=== PATIENT | male | born 1955 | race Caucasian/White ===

== ENCOUNTER → 2017-01-14 | Outpatient (REF) | payer BC, OTHER ==
[2017-01-14 11:21] LABS: ALBUMIN 4.1 GM/DL (3.2-5.2); ALBUMIN/GLOBULIN RATIO 1.11 (1.00-1.93); ALKALINE PHOSPHATASE 83 U/L (45-117); ALT/SGPT 26 U/L (12-78); ANION GAP 8 MEQ/L (8-16); AST/SGOT 12 U/L (15-37); BILIRUBIN,TOTAL 0.6 MG/DL (0.2-1.0); BLOOD UREA NITROGEN 21 MG/DL (7-18); CALCIUM LEVEL 8.9 MG/DL (8.8-10.2); CARBON DIOXIDE LEVEL 28 MEQ/L (21-32); CHLORIDE LEVEL 104 MEQ/L (98-107); CHOLESTEROL LEVEL 145 MG/DL (<200); CREATININE FOR GFR 0.96 MG/DL (0.70-1.30); GLOMERULAR FILTRATION RATE > 60.0 (>49); GLUCOSE, FASTING 108 MG/DL (80-110); POTASSIUM SERUM 4.8 MEQ/L (3.5-5.1); SODIUM LEVEL 140 MEQ/L (136-145); TOTAL PROTEIN 7.8 GM/DL (6.4-8.2); TRIGLYCERIDES LEVEL 225 MG/DL (<150)
== END ==
LOC: M LABDRAW1 08:46
PROVIDERS: ATTEND Emergency Medicine
DX: E78.2 Mixed hyperlipidemia (principal); R73.01 Impaired fasting glucose; I10 Essential (primary) hypertension

== ENCOUNTER → 2018-02-06 | Outpatient (REF) | payer BC ==
[2018-02-06 12:57] LABS: ALBUMIN 4.4 GM/DL (3.2-5.2); ALBUMIN/GLOBULIN RATIO 1.29 (1.00-1.93); ALKALINE PHOSPHATASE 89 U/L (45-117); ALT/SGPT 24 U/L (12-78); ANION GAP 8 MEQ/L (8-16); AST/SGOT 10 U/L (7-37); BILIRUBIN,TOTAL 0.6 MG/DL (0.2-1.0); BLOOD UREA NITROGEN 23 MG/DL (7-18); CALCIUM LEVEL 8.8 MG/DL (8.8-10.2); CARBON DIOXIDE LEVEL 28 MEQ/L (21-32); CHLORIDE LEVEL 104 MEQ/L (98-107); CHOLESTEROL LEVEL 157 MG/DL (<200); CHOLESTEROL RISK RATIO 4.906 (<5); CREATININE FOR GFR 1.03 MG/DL (0.70-1.30); GLOMERULAR FILTRATION RATE > 60.0 (>49); GLUCOSE, FASTING 108 MG/DL (70-100); HDL CHOLESTEROL 32 MG/DL (>40); LDL CHOLESTEROL 83 MG/DL (<100); NON-HDL-C 125 MG/DL; POTASSIUM SERUM 4.5 MEQ/L (3.5-5.1); SODIUM LEVEL 140 MEQ/L (136-145); TOTAL PROTEIN 7.8 GM/DL (6.4-8.2); TRIGLYCERIDES LEVEL 212 MG/DL (<150)
[2018-02-06 13:06] LABS: ESTIMATED AVERAGE GLUCOSE 111 MG/DL (60-110); HEMOGLOBIN A1c 5.5 %
[2018-02-06 15:22] LABS: HEPATITIS C VIRUS ABY INDEX < 0.0 INDEX (<0.8)
== END ==
LOC: M LABDRAW1 12:07
DX: I10 Essential (primary) hypertension (principal); E78.2 Mixed hyperlipidemia; R73.01 Impaired fasting glucose; Z00.00 Encounter for general adult medical examination without abnormal findings
CPT/HCPCS: 80053

== ENCOUNTER → 2019-03-25 | Outpatient (REF) | payer OTHER ==
[2019-03-25 12:10] LABS: BASO % 0.6 % (0.0-1.0); EOS # 0.2 10^3/uL (0.0-0.5); HEMATOCRIT 43.8 % (42.0-52.0); LYMPH # 1.7 10^3/uL (1.5-5.0); MEAN CORPUSCULAR HEMOGLOBIN 32.6 pg (27.0-33.0); MEAN CORPUSCULAR VOLUME 102.1 fl (80.0-96.0); MONO # 0.6 10^3/uL (0.0-0.8); MONO % 9.1 % (0.0-5.0); NEUTROPHILS # 4.4 10^3/uL (1.5-8.5); NEUTROPHILS % 62.9 % (36.0-66.0); PLATELET COUNT, AUTOMATED 233 10^3/uL (150-450); RED BLOOD COUNT 4.29 10^6/uL (4.30-6.10); WHITE BLOOD COUNT 6.9 10^3/uL (4.0-10.0)
[2019-03-25 12:51] LABS: ALBUMIN 4.2 GM/DL (3.2-5.2); ALT/SGPT 27 U/L (12-78); BILIRUBIN,TOTAL 0.7 MG/DL (0.2-1.0); BLOOD UREA NITROGEN 22 MG/DL (7-18); CALCIUM LEVEL 9.2 MG/DL (8.8-10.2); CARBON DIOXIDE LEVEL 29 MEQ/L (21-32); CHLORIDE LEVEL 103 MEQ/L (98-107); CHOLESTEROL LEVEL 160 MG/DL (<200); CREATININE FOR GFR 1.18 MG/DL (0.70-1.30); GLOMERULAR FILTRATION RATE > 60.0 (>49); GLUCOSE, FASTING 120 MG/DL (70-100); HDL CHOLESTEROL 32 MG/DL (>40); LDL CHOLESTEROL 82 MG/DL (<100); NON-HDL-C 128 MG/DL; POTASSIUM SERUM 4.5 MEQ/L (3.5-5.1); SODIUM LEVEL 140 MEQ/L (136-145); TOTAL PROTEIN 7.9 GM/DL (6.4-8.2); TRIGLYCERIDES LEVEL 230 MG/DL (<150)
[2019-03-27 00:16] LABS: PSA % FREE 15.3 % (.); PSA FREE 1.07 ng/mL
== END ==
LOC: M LABDRAW1 11:47
PROVIDERS: ATTEND Family Medicine
DX: Z12.5 Encounter for screening for malignant neoplasm of prostate (principal); E78.2 Mixed hyperlipidemia

== ENCOUNTER → 2019-05-11 | Outpatient (REF) | payer OTHER ==
[2019-05-11 18:37] LABS: HEMOGLOBIN A1c 5.8 %
[2019-05-14 00:07] LABS: PSA % FREE 16.7 % (.); PSA FREE 1.27 ng/mL; PSA TOTAL 7.6 ng/mL (0.0-4.0)
== END ==
LOC: M LABDRAW1 17:26
PROVIDERS: ATTEND Physician Assistant Medical
DX: R97.20 Elevated prostate specific antigen [PSA] (principal); R73.01 Impaired fasting glucose

== ENCOUNTER → 2019-05-28 | Outpatient (REF) | payer OTHER | LOC: M SMT 13:23 | PROVIDERS: ATTEND Nurse Practitioner Family | DX: R97.20 Elevated prostate specific antigen [PSA] (principal); R19.7 Diarrhea, unspecified ==

== ENCOUNTER → 2019-06-22 | Outpatient (CLI) | payer OTHER ==
--- NOTE | 2019-06-22 12:45 | REPPI ---
Prostate sonography: History: Elevated PSA. Sonographic findings: Trans rectal prostate sonography demonstrates unremarkable seminal vesicles. Prostate gland is heterogeneously enlarged with calcifications and cystic changes noted. Glandular dimensions are measured at 5.2 x 4.3 x 4.9 cm with a calculated glandular volume of 57.8 ml. Transrectal sonographic guidance is provided to Dr. Ramos who performed trans rectal ultrasound guided needle biopsy procedure . Electronically Signed by William Rollins MD 06/22/2019 12:06 P
== END ==
LOC: M SMT PRO 08:12
PROVIDERS: ATTEND Urology
DX: C61 Malignant neoplasm of prostate (principal)
CPT/HCPCS: 76872; 76942; G0416

== ENCOUNTER → 2019-08-17 | Outpatient (CLI) | payer OTHER ==
[~2019-08-17] MED LIST: CLOT1CRE71 TOP; LEXA5TAB13 PO; LOSA100T8 PO; SIMV20TA22 PO
--- NOTE | 2019-08-17 11:05 | RADONC ---
RADIATION ONCOLOGY CONSULTATION NOTE DATE: 08/17/2019 This is a telemedicine visit. The patient was informed of the risks including security breech, technological failure, inability to perform a comprehensive physical exam which could delay or prevent an accurate diagnosis, and potential complications from treatment decisions rendered over a telemedicine platform. The patient understands and consented to the use of telehealth services phone only. CHART NUMBER: [id number] DIAGNOSIS: Prostate cancer. STAGE: II A, T2b, N0, M0, Lc score 6 (3-3), grade group 1, PSA 7.6. ECOG PERFORMANCE STATUS: 0 CONSULTATION NOTE: Mr. Austin Larson is a very pleasant 64-year-old white male with the diagnosis of what appears to be a stage II A, T2b, N0, M0, Lc score 6 (3-3) adenocarcinoma of the prostate, grade group 1 with a PSA level of 7.6, who is presenting to us today for discussion of definitive external beam radiation therapy with IMRT/IGRT. HISTORY OF PRESENT ILLNESS: The patient was in his usual state of health and on March 25, 2019 was found to have a PSA level of 7.0. By May 11, 2019 the PSA had risen to 7.6. On 06/22/2019, the patient underwent prostatic needle biopsy and pathology revealed a Greer score 6 (3-3), adenocarcinoma involving the left side of his prostate. The patient's father as well as multiple friends have had prostate cancer, several which were treated with surgery and several which were treated with IMRT radiation, and he has decided on undergoing radiation. He does not wish to be observed. The patient is scheduled for placement of fiducial markers with his urologist doctor, Elio Ramos MD next week. PAST MEDICAL HISTORY: The patient's past medical history is positive for hypertension and arthritis. He has a history of hypercholesterolemia as well. The patient had a basal cell carcinoma removed from his left cheek. He had cataract surgery in the right eye. He has some preauricular fistula repair in the left ear when he was 3-weeks-old. He has had retinal laser surgery for the right eye. A right thumb cyst was removed. He had a vasectomy. ALLERGIES: The patient has NO KNOWN DRUG ALLERGIES. SOCIAL HISTORY: The patient does not smoke cigarettes. He drinks alcohol socially. FAMILY HISTORY: The patient's family history is positive for a father with prostate cancer. His mother had colon cancer. REVIEW OF SYSTEMS: The patient's review of systems is noncontributory. Denies nausea, vomiting, fevers, chills, night sweats, diplopia, headaches, anxiety or depression, anorexia, weight loss, visual disturbances, chest pain, urinary or bowel difficulties, bone pain, or neurological problems. PHYSICAL EXAMINATION: Physical examination was deferred for COVID-19 precautions. This was a telemedicine visit. MEDICAL NECESSITY: IMRT/IGRT is clinically indicated for the highly conformal dose planning required. The target volume is in close proximity to critical structures, such as the rectum, bladder, small bowel, and femoral heads. The volume of interest must be covered with narrow margins to adequately protect immediately adjacent structures. The plan requires interpretation of complex testing such as CT localization. As noted above, special planning (IMRT) and localizing (IGRT) is required and essential to maximally protect sensitive normal tissue structures which cannot be accomplished using conventional 3-dimensional planning. ASSESSMENT: Clearly, the patient is a candidate for radiation therapy and I have so informed him. I have discussed with the patient in detail the potential benefits as well as possible acute and chronic sequelae of external beam radiation therapy. We discussed logistics of treatment planning, simulation and subsequent fractionated daily radiation treatments. In addition, I discussed alternatives such as observation and surgery. We discussed the pluses and minuses of each of these modalities. As mentioned above, the patient has multiple friends and relatives that have had prostate cancer and gone through the various treatments. He has decided he wants radiation with IMRT and we are therefore scheduling him for simulation initiation of treatment planning approximately 2 weeks after the fiducial markers are placed. Thank you for allowing us to participate in the care of this very pleasant gentleman. If I could be of any further assistance or provide you with any information, please free to contact me anytime. As always with warm regards. cc: MD Fozia Birch MD
== END ==
LOC: M ONCR 09:55
PROVIDERS: ATTEND Radiology Radiation Oncology
DX: C61 Malignant neoplasm of prostate (principal)

== ENCOUNTER → 2019-08-24 | Outpatient (CLI) | payer OTHER, MEDICARE ==
--- NOTE | 2019-08-24 12:49 | REPPI ---
TRANSRECTAL PROSTATIC ULTRASOUND GUIDANCE FOR FIDUCIARY MARKER PLACEMENT: Transrectal prostate ultrasound guidance was provided for Dr. Ramos who placed three fiduciary markers in the prostate, one in the right base, one in the left base and one in the midline at the apex. Electronically Signed by Ashok Alexander MD 08/24/2019 04:58 P
== END ==
LOC: M SMT PRO 09:13
PROVIDERS: ATTEND Urology
DX: C61 Malignant neoplasm of prostate (principal)
CPT/HCPCS: 76872; A4648

== ENCOUNTER 2019-10-01 15:44 | Outpatient (RCR) | payer MEDICARE, OTHER ==
[2019-09-07 14:56] LABS: BASO # 0.1 10^3/uL (0.0-0.2); BASO % 0.8 % (0.0-1.0); EOS # 0.2 10^3/uL (0.0-0.5); EOS % 2.2 % (0.0-3.0); HEMATOCRIT 40.3 % (42.0-52.0); HEMOGLOBIN 13.8 g/dl (13.5-17.5); LYMPH # 2.5 10^3/uL (1.5-5.0); LYMPH % 27.6 % (24.0-44.0); MEAN CORPUSCULAR HGB CONC 34.2 g/dl (32.0-36.5); MEAN CORPUSCULAR VOLUME 96.4 fl (80.0-96.0); MONO % 11.3 % (0.0-5.0); NEUTROPHILS # 5.3 10^3/uL (1.5-8.5); NEUTROPHILS % 57.7 % (36.0-66.0); PLATELET COUNT, AUTOMATED 237 10^3/uL (150-450); RED BLOOD COUNT 4.18 10^6/uL (4.30-6.10); WHITE BLOOD COUNT 9.1 10^3/uL (4.0-10.0)
--- NOTE | 2019-09-10 09:15 | RADONC ---
RADIATION ONCOLOGY SIMULATION NOTE DATE: 09/07/2019 CHART #: [id number] Mr. Avila was taken to the CT scan for CT simulation of his prostate field. CT was accomplished without difficulty or discomfort. Radiation treatment planning is underway and radiation treatments will begin subsequently. An immobilization device was created and will be used throughout the course of treatment. It was created without difficulty or discomfort. I was physically present throughout the course of CT simulation.
[2019-10-18] MEDS ORDERED: FLOM0.4C39 PO (16:09)
== END 2019-10-03 ==
LOC: M ONCR 15:44
PROVIDERS: ATTEND Radiology Radiation Oncology
DX: C61 Malignant neoplasm of prostate (principal)

== ENCOUNTER → 2019-11-02 | Outpatient (RCR) | payer OTHER ==
--- NOTE | 2019-10-06 11:00 | RADONC ---
RADIATION ONCOLOGY PROGRESS NOTE DATE: 09/28/2019 CHART #: [id number] Mr. Larson is presently at a dose of 900 cGy to his prostate and is tolerating treatments quite well at this point with no complaints related to his radiation therapy. He has no urinary or bowel difficulties and no bone pain. REVIEW OF SYSTEMS: The patient's review of systems is noncontributory. Denies nausea, vomiting, fevers, chills, night sweats, diplopia, headaches, anxiety or depression, anorexia, weight loss, visual disturbances, chest pain, urinary or bowel difficulties, bone pain, or neurological problems. PHYSICAL EXAMINATION: The patient's skin is in excellent condition with no evidence of radiation change present. There is no moist or dry desquamation. The remainder of his physical exam remains unchanged. Mr. Larson is tolerating treatments quite well and radiation will continue as scheduled.
--- NOTE | 2019-10-10 12:08 | RADONC ---
RADIATION ONCOLOGY PROGRESS NOTE: DATE: 10/04/2019 CHART NUMBER: [id number] Mr. Larson is presently at a dose of 1620 cGy to his prostate and seminal vesicles and is tolerating treatments quite well at this point with no complaints related to his radiation therapy. He is having no significant complaints related to his radiation therapy. He is having no urinary or bowel problems. REVIEW OF SYSTEMS: The patient's review of systems is largely noncontributory except for some fatigue. He denies nausea, vomiting, fevers, chills, night sweats, diplopia, headaches, anxiety or depression, anorexia, weight loss, visual disturbances, chest pain, urinary or bowel difficulties, bone pain, or neurological problems. PHYSICAL EXAMINATION: The patient's skin is in excellent condition with no evidence of moist or dry desquamation. The remainder of his physical exam remains unchanged. Mr. Larson is tolerating treatments quite well and radiation will continue as scheduled.
--- NOTE | 2019-10-15 10:50 | RADONC ---
RADIATION ONCOLOGY PROGRESS NOTE DATE: 10/11/2019 CHART NUMBER: [id number] PROGRESS NOTE: Mr. Larson is presently at a dose of 2520 cGy to his prostate and seminal vesicles and is tolerating treatments quite well at this point with no complaints related to his radiation therapy. He is having no urinary or bowel difficulties. No bone pain. REVIEW OF SYSTEMS: The patient's review of systems is noncontributory. Denies nausea, vomiting, fevers, chills, night sweats, diplopia, headaches, anxiety or depression, anorexia, weight loss, visual disturbances, chest pain, urinary or bowel difficulties, bone pain, or neurological problems. PHYSICAL EXAMINATION: The patient's skin is in good condition with no evidence of moist or dry desquamation. The remainder of his physical exam remains unchanged. Mr. Larson is tolerating treatments quite well and radiation will continue as scheduled.
--- NOTE | 2019-10-20 13:36 | RADONC ---
RADIATION ONCOLOGY PROGRESS NOTE DATE: 10/18/2019 CHART NUMBER: [id number] PROGRESS NOTE: Mr. Larson is presently at a dose of 3420 cGy to his prostate and is tolerating treatments quite well at this point. Although, he is complaining of urinary hesitancy. REVIEW OF SYSTEMS: The patient's review of systems is noncontributory except for urinary hesitancy. He denies standard review of systems. Denies nausea, vomiting, fevers, chills, night sweats, diplopia, headaches, anxiety or depression, anorexia, weight loss, visual disturbances, chest pain, bowel difficulties, bone pain, or neurological problems. PHYSICAL EXAMINATION: The patient's skin is in good condition with no evidence of moist or dry desquamation. The remainder of his physical exam remains unchanged. Mr. Larson is tolerating treatments quite well and radiation will continue as scheduled.
--- NOTE | 2019-10-28 14:12 | RADONC ---
RADIATION ONCOLOGY DATE OF SERVICE: 10/25/2019 CHART #: [id number] Mr. Larson who carries a diagnosis of prostate CA so far has received a dose of 4320 cGy in 24 fractions. He is tolerating treatment very well. He experienced urinary hesitancy and was started on tamsulosin and the urinary symptoms are much better. REVIEW OF SYSTEMS: The patient's review of systems is noncontributory. As mentioned, urinary hesitancy improved with medication. Denies nausea, vomiting, fever, chills, headache or bone pain. PHYSICAL EXAMINATION: The patient is in good condition with no evidence of skin changes. Remainder of his physical exam remains unchanged. Overall, Mr. Larson is tolerating treatment very well and radiation therapy will continue as planned. MTDD
[~2019-11-02] MED LIST changes: +FLOM0.4C39 PO
--- NOTE | 2019-11-04 11:02 | RADONC ---
RADIATION ONCOLOGY DATE OF SERVICE: 11/01/2019 CHART #: [id number] Mr. Larson carries a diagnosis of prostate CA. So far, he has received a dose of 5420 cGy in 29 fractions. He is tolerating treatment very well without any unusual side effects. He experienced urinary hesitancy which was much improved with tamsulosin. REVIEW OF SYSTEMS: Noncontributory. He has mild fatigue. Denies nausea, vomiting, fever, chills, headache or bone pain. PHYSICAL EXAMINATION: The patient is in good general condition. There is no evidence of skin changes. Remainder of his physical examination remains unchanged. RECOMMENDATION: Mr. Larson is tolerating treatment very well and the radiation therapy will continue as planned. MTDD
== END ==
LOC: M ONCR 10-04 15:46
PROVIDERS: ATTEND Radiology Radiation Oncology
DX: C61 Malignant neoplasm of prostate (principal)

== ENCOUNTER 2019-11-24 15:44 | Outpatient (RCR) | payer OTHER ==
--- NOTE | 2019-11-16 16:53 | RADONC ---
RADIATION ONCOLOGY PROGRESS NOTE DATE: 11/08/2019 CHART NUMBER: [id number] Mr. Larson is presently at a dose 5940 cGy to his prostate and is tolerating treatments quite well at this point with no complaints related to his radiation therapy. He has no urinary or bowel difficulties. No bone pain. The patient's review of systems is noncontributory. He denies nausea, vomiting, fevers, chills, night sweats, diplopia, headaches, anxiety or depression, anorexia, weight loss, visual disturbances, chest pain, urinary or bowel difficulties, bone pain, or neurological problems. PHYSICAL EXAMINATION: The patient's skin is in good condition with no evidence of moist or dry desquamation. The remainder of his physical exam remains unchanged. Mr. Larson is tolerating his treatments quite well and radiation will continue as scheduled.
--- NOTE | 2019-11-22 16:38 | RADONC ---
RADIATION ONCOLOGY PROGRESS NOTE DATE: 11/22/2019 CHART NUMBER: [id number] PROGRESS NOTE : Mr. Larson is presently at a dose of 6480 cGy to his prostate and is tolerating treatments quite well at this point with no complaints related to his radiation therapy or disease. He is having no urinary or bowel difficulties and no bone pain. REVIEW OF SYSTEMS: The patient's review of systems is noncontributory. Denies nausea, vomiting, fevers, chills, night sweats, diplopia, headaches, anxiety or depression, anorexia, weight loss, visual disturbances, chest pain, urinary or bowel difficulties, bone pain, or neurological problems. PHYSICAL EXAMINATION: The patient's skin is in good condition with no evidence of moist or dry desquamation. The remainder of his physical exam remains unchanged. Mr. Larson is tolerating treatments quite well and radiation will continue as scheduled. He had several days break last week secondary to machine breakdown. That has repaired at this time.
== END 2019-12-03 ==
LOC: M ONCR 15:44
PROVIDERS: ATTEND Radiology Radiation Oncology
DX: C61 Malignant neoplasm of prostate (principal)

== ENCOUNTER → 2020-02-22 | Outpatient (REF) | payer OTHER, MEDICARE | LOC: M LABDRWAD 17:06 | PROVIDERS: ATTEND General Practice | DX: C61 Malignant neoplasm of prostate (principal) ==

== ENCOUNTER → 2020-03-01 | Outpatient (CLI) | payer OTHER ==
--- NOTE | 2020-03-01 11:07 | RADONC ---
Radiation Oncology Hx/FUP Radiation Oncology Hx/FUP Date of Service: Mar 01, 2020 Pt Identifier Austin Larson is a 64 year old male seen for a followup visit today at the department of radiation oncology for a history of low risk prostate cancer T1c Lc 3+3=6 PSA 7.6 who opted for treatment and completed EBRT 79.2 Gy in 44 fractions 12/08/19 (final 3 fractions of treatment delivered at [facility] due to system wide computer outage at [facility]). Diagnosis/Treatment History Oncologic History PSA trend: 03/31/19 7.0 ng/ml 05/11/19 7.6 02/22/20 1.65 06/22/19 TRUS biopsy [place] 3+3=6 in 3/12 cores Interval History Feels well. Has ED, not a concern. Has no GI symptoms. No BRBPR. Normal daily BM. Still taking flomax. Stable 1x nocturia. Previously stream was weak, with flomax stream is normal. Feels he is able to empty well. No daytime frequency or urgency. Appetite good, weight stable. Saw Dr. Ramos in December 2019, next appointment with him is August 2020. Current Therapy Surveillance Stage Low risk prostate cancer T1c [place] 3+3=6 PSA 7.6 Social History: Non-smoker Non-Drinker Allergies / Meds Allergies: Coded Allergies: No Known Allergies (Unverified , 04/14/13) Home Meds Active Scripts Tamsulosin HCl (Flomax) 0.4 Mg Capsule, 0.4 MG PO DAILY for 30 Days, #30 CAP 5 Refills Prov:Ashok Dobbins 10/18/19 Reported Medications Clotrimazole/Betamethasone Dip (Clotrimazole-Betamethasone Crm) 15 Gm Cream..g., 1 APLCT TOP BID for 7 Days, #15 GRAM apply to affected area(s) 08/17/19 Escitalopram Oxalate (Lexapro) 5 Mg Tablet, 5 MG PO 2XW, TAB 08/17/19 Simvastatin (Simvastatin) 20 Mg Tablet, 20 MG PO DAILY, TAB 08/17/19 Losartan/Hydrochlorothiazide (Losartan-Hctz 100-12.5 mg Tab) 1 Each Tablet, 1 TAB PO DAILY, TAB 08/17/19 Review of Systems Review of Systems Constitutional: Denies: ROS Unabtainable, Chills, Fever, Malaise, Night Sweats, Weakness, Fatigue, Weight Loss, Lethargy, Normal appetite, Other symptoms Eyes: Denies: Pain, Vision change, Conjunctivae inflammation, Eyelid inflam mation, Redness, Other HEENT: Denies: Head Aches, Ear Pain, Dysphagia, Sinus Congestion, Post Nasal Drip, Sore Throat, Epistaxis, Other Symptoms Skin: Denies: Rash, Lesions, Jaundice, Bruising, Other Pulmonary: Denies: Dyspnea, Cough, Pleuritic Chest Pain, Other Symptoms Cardiovascular: Denies: Chest Pain, Palpitations, Orthopnea, Paroxysmal Noc. Dyspnea, Edema, Lt Headedness, Other Symptoms Gastrointestinal: Denies: Nausea, Vomiting, Abdominal Pain, Diarrhea, Constipation, Melena, Hematochezia, Other Symptoms Genitourinary: Denies: Dysuria, Frequency, Incontinence, Hematuria, Retention, Other Symptoms Hematologic: Denies: Bruising, Bleeding Excessively, Petecchia, Purpura, Enlarged Lymph Nodes, Other Hematologic Endocrine: Denies: Polydipsia, Polyphagia, Polyuria, Heat Intolerance, Cold Intolerance, Other Endocrine Sx Musculoskeletal: Denies: Neck pain, Shoulder pain, Arm pain, Back pain, Hand pain, Leg pain, Foot pain, Joint pain, Muscle pain, Spasms, Gout, Joint sweling, Muscle stiffness, Midthoracic pain, Other Neurological: Denies: Weakness, Numbness, Incoordination, Change in Speech, Confusion, Seizures, Other Symptoms Psych: Denies: Mood Normal, Anxiety, Depression, Memory Issues, Thoughts of Self Harm, Anger, Thoughts of harming Other, Other Psych Physical Examination Vital Signs Wt 257 lb T 97.2 P 103 RR 18 BP 135/80 O2 96% Pain 0 Fatigue 0 General Exam: Positive: Alert, Cooperative; Negative: No Acute Distress Eye Exam: Positive: PERRLA, EOMI ENT EXAM: Positive: Atraumatic Neck Exam: Positive: Supple Chest Exam: Positive: Clear to auscultation, Normal air movement Heart Exam: Positive: Rate Normal, Regular Rhythm Abdomen Exam: Positive: Normal bowel sounds, Soft; Negative: Tenderness Extremity Exam: Negative: Edema Skin Exam: Positive: Nl turgor and temperature; Negative: Rash Neuro Exam: Positive: Normal Gait, Normal Speech, Cranial Nerves 3-12 NL Psych Exam: Positive: Mental status NL, Mood NL; Negative: Anxiety Other Physical Findings Deferred , downtrending PSA Diagnostic and Laboratory Diagnostic Review Radiologic images, relevant labs and pathology reports were personally reviewed and discussed with Mr. Larson. Assessment and Plan Impression Assessment Mr. Larson is a 64 year old male with a history of low risk prostate cancer T1c Lc 3+3=6 PSA 7.6 who opted for treatment and completed EBRT 79.2 Gy in 44 fractions 12/08/19 (final 3 fractions of treatment delivered at [facility] due to system wide computer outage at [facility]). He is doing well with a good PSA response. He has no significant or GI toxicities. With respect to flomax, I think this is a good long term care pharmacist medication for him as it is not causing an side effects, and has helped his voiding (prior to RT and starting flomax he had more nocturia (2-3x) and weak stream). In his case I would not recommend PSA checks more frequently than q6m. Because he is seeing Dr. Ramos again in August 2020 I will see him in 12 months with a PSA check (in effort to split follow up with Dr. Ramos). Plan 12 months with PSA Continue flomax long-term Mr. Larson was encouraged to call with questions or concerns in the interim period. GER CASIANO MD Mar 01, 2020 11:07
== END ==
LOC: M ONCR 10:04
PROVIDERS: ATTEND General Practice
DX: C61 Malignant neoplasm of prostate (principal)

== ENCOUNTER → 2020-03-20 | Outpatient (REF) | payer OTHER ==
[2020-03-20 16:48] LABS: ALBUMIN 4.3 GM/DL (3.2-5.2); ALT/SGPT 19 U/L (12-78); BILIRUBIN,TOTAL 0.4 MG/DL (0.2-1.0); BLOOD UREA NITROGEN 20 MG/DL (7-18); CARBON DIOXIDE LEVEL 29 MEQ/L (21-32); CHLORIDE LEVEL 105 MEQ/L (98-107); CHOLESTEROL LEVEL 152 MG/DL (<200); CHOLESTEROL RISK RATIO 4.606 (<5); CREATININE FOR GFR 1.12 MG/DL (0.70-1.30); GLOMERULAR FILTRATION RATE > 60.0 (>49); GLUCOSE, FASTING 104 MG/DL (70-100); HDL CHOLESTEROL 33 MG/DL (>40); LDL CHOLESTEROL 48 MG/DL (<100); NON-HDL-C 119 MG/DL; POTASSIUM SERUM 4.4 MEQ/L (3.5-5.1); SODIUM LEVEL 140 MEQ/L (136-145); TOTAL PROTEIN 7.6 GM/DL (6.4-8.2); TRIGLYCERIDES LEVEL 356 MG/DL (<150)
[2020-03-20 17:15] LABS: HEMOGLOBIN A1c 5.5 %
== END ==
LOC: M LABDRWAD 16:08
PROVIDERS: ATTEND Physician Assistant Medical
DX: E78.2 Mixed hyperlipidemia (principal); R73.01 Impaired fasting glucose

== ENCOUNTER → 2020-06-10 | Outpatient (CLI) | payer OTHER | LOC: M LABSMTC 08:37 | PROVIDERS: ATTEND Anesthesiology | DX: Z01.812 Encounter for preprocedural laboratory examination (principal); Z20.822 Contact with and (suspected) exposure to COVID-19 ==

== ENCOUNTER 2020-06-15 06:48 | Day surgery (SDC) | payer OTHER ==
[~2020-06-15] VITALS: Ht 172.7 cm; Wt 115.2 kg
[~2020-06-15 06:48] MED LIST changes: +NS 1,000 ML IV ONE
--- OUTSIDE RECORDS SUMMARY | 2020-06-15 06:55 | CCD | Continuity of Care Document ---
Author Author Austin [facility] Organization Unknown Address [address], [address] [place] [address] Phone [phone] Care Team Providers Care Crew Leader Name Role Phone Diana Álvarez AUTM Fozia Bruno M.D. AUTM [phone] Problems Active Problems Provider Date Essential hypertension Oleksandr Espino M.D. Onset: 5 Social History Type Date Description Comments Sex Unknown ETOH Use 5 A Week Tobacco Use Start: Unknown Patient has never smoked Recreational Drug Use Denies Drug Use Allergies, Adverse Reactions, Alerts Description No Known Drug Allergies Medications Active Medications SIG Qnty Indications Ordering Provide r Date Losartan Potassium 25mg Tablets 1/2 by mouth every day Unknown Simvastatin 20mg Tablets 1 by mouth every day Unknown Motrin Ib 400mg-600mg Tablets prn Unknown Tylenol Extra Strength 500mg Table ts 1-2 by mouth every 6 hours prn. not to exceed 4gm/24hrs Unknown Tamsulosin HCL 0.4mg Capsules 1 every day Unknown Fish Oil 1000mg Capsules 1 ev simón day Unknown Escitalopram Oxalate 5mg Tablets 2 every week Kendra Guerra [facility] Immunizations Description No Information Available Vital Signs Date Vital Result Comment 03/27/2020 1:14pm BP Systolic 132 mmHg BP Diastolic 78 mmHg Height 70 inches 5'10" Weight 254.00 lb BMI (Body Mass Index) 36.4 kg/m2 [place] Body Weight 166 lb Weight 115.214 kg BSA (Body Surface Area) 2.31 m2 09/12/2014 10:00am BP Systolic 155 mmHg BP Diastolic 102 mmHg Heart Rate 80 /min Height 70 inches 5'10" Weight 248.12 lb BMI (Body Mass Index) 35.6 kg/m2 [place] Body Weight 166 lb Weight 112.549 kg BSA (Body Surface Area) 2.29 m2 Results Description No Information Available Procedures Description No Information Available Medical Devices Description No Information Available Encounters Description No Information Available Assessments Description No Information Available Plan of Treatment No Information Available Functional Status Description No Information Available Mental Status Description No Information Available Referrals Refer to Reason for Referral Status Appt Date Oleksandr Espino M.D. COLONOSCOPY Scheduled 03/27/2020 [facility] [address] [place] [address] [phone]
--- OUTSIDE RECORDS SUMMARY | 2020-06-15 06:55 | CCD | Continuity of Care Document ---
Author Author Austin THOMAS Organization Unknown Address [address] [place] [address] Phone [phone] Care Team Providers Care Rug Measurer Name Role Phone [facility] - [facility] [phone] Problems Active Problems Provider Date Essential hypertension Jerry Parson M.D. Onset: 04/2011 Mixed hyperlipidemia Jerry Parson M.D. Onset: 08/14 Rosacea Jerry Parson M.D. Onset: 2010 Degenerative joint disease involving multiple joints Darrell Rubio PA Onset: 08/14/2010 Family history of prostate cancer Darrell Rubio PA Onset: 08/14/2010 Family history of malignant neoplasm of gastrointestin al tract Darrell Rubio PA Onset: 08/14/2010 Social History Type Date Description Comments Sex Unknown Tobacco Use Start: Unknown Never Smoked Cigarettes Tobacco Use Start: Unknown Never Used Smokeless Tobacco ETOH Use Occasionally consumes alcohol Tobacco Use Start: Unknown Patient has never smoked Recreational Drug Use Never Used Drugs Exercise Type/Frequency Exercises regularly walk ing, 1 to 1 1/2 miles 4 days a week Sun Exposure Moderate amount of sun exposure Sun Exposure Uses sunscreen Occasionally Seat Belt/Car Seat Always uses seat belt Guns in Home No Smoke Alarms Yes Smoke Alarms Carbon Monoxide Detector: Yes Allergies, Adverse Reactions, Alerts Description No Known Drug Allergies Medications Active Medications SIG Qnty Indications Ordering Provide r Date Escitalopram Oxalate 5mg Tablets 1 by mouth every other day 90tabs F43.23 Fozia Bruno M.D. 1 05/23/2018 Losartan Potassium/Hydrochlorothiazide 100-12.5mg Tablets take one tablet by mouth every morning for blood pressure 90 tabs I10 Fozia Bruno M.D. 10/11/2014 Simvastatin 20mg Tablets take one tablet by mouth every day for cholesterol 90tabs E78.2 Baljeet Bruno M.D. 09/18/2010 Flomax 0.4mg Capsules take one capsule by mouth at bedtime Unknown Immunizations CPT Code Status Date Vaccine Lot # [id number] Given 03/16/2020 Influenza Virus Vaccine, Quadrivalent,age 3 and up,multidose vial [id number] Given 03/16/2020 Prevnar 13 [id number] Given 10/12/2015 Boostrix (Tdap) Tetnus, Diphtheria Toxoids & Acellular Pertussis [id number] Vital Signs Date Vital Result Comment 03/16/2020 2:46pm BP Systolic 117 mmHg BP Diastolic 58 mmHg Heart Rate 100 /min Body Temperature 97.0 F Respiratory Rate 18 /min Height 69 inches 5'9" Weight 254.12 lb O2 % BldC Oximetry 97 % Peak Expiratory Flow Rate 494 Estimated Peak Flow Rate [place] Body Weight 160 lb BMI (Body Mass Index) 37.5 kg/m2 03/23/2019 2:59pm BP Systolic 121 mmHg BP Diastolic 73 mmHg Heart Rate 78 /min Body Temperature 99.0 F Respiratory Rate 16 /min Height 68.50 inches 5'8.50" Weight 256.38 lb O2 % BldC Oximetry 98 % Peak Expiratory Flow Rate 481 Estimated Peak Flow Rate [place] Body Weight 154 lb BMI (Body Mass Index) 38.4 kg/m2 Results Test Acquired Date Facility Test Result H/L Range Note Lipid Panel 03/20/2020 [facility] [phone] Triglycerides Level 356 mg/dL High <150 Cholesterol Level 152 mg/dL Normal <200 HDL Cholesterol 33 mg/dL Low >40 LDL Cholesterol 48 mg/dL Normal <100 Non-HDL-C 119 mg/dL Normal Cholesterol Risk Ratio 4.606 Normal <5 Comprehensive Metabolic Profil 03/20/2020 [facility] [phone] Glucose, Fasting 104 mg/dL High 70-100 Blood Urea Nitrogen 20 mg/dL High 7-18 Creatinine For GFR 1.12 mg/dL Normal 0.70-1.30 Glomerular Filtration Rate > 60.0 Normal >49 1 Sodium Level 140 mEq/L Normal 136-145 Potassium Serum 4.4 mEq/L Normal 3.5-5.1 Chloride Level 105 mEq/L Normal 98-107 Carbon Dioxide Level 29 mEq/L Normal 21-32 Anion Gap 6 mEq/L Low 8-16 Calcium Level 9.0 mg/dL Normal 8.8-10.2 Ast/Sgot 12 U/L Normal 7-37 Alt/SGPT 19 U/L Normal 12-78 Alkaline Phosphatase 97 U/L Normal 45-117 Bilirubin,Total 0.4 mg/dL Normal 0.2-1.0 Total Protein 7.6 GM/DL Normal 6.4-8.2 Albumin 4.3 GM/DL Normal 3.2-5.2 Albumin/Globulin Ratio 1.3 Normal Hemoglobin A1c 03/20/2020 [facility] [phone] Hemoglobin A1c 5.5 % Normal 2 Estimated Average Glucose 111 mg/dL High 60-110 1 Units are mL/min/1.73 m2 Chronic Kidney Disease Staging per NKF: Stage I & II GFR >=60 Normal to Mildly Decreased Stage III GFR 30-59 Moderately Decreased Stage IV GFR 15-29 Severely Decreased Stage V GFR <15 Very Little GFR Left ESRD GFR <15 on [employer] 2 REFERENCE RANGES: <=5.6% NORMAL 5.7-6.4% SUGGESTS IMPAIRED GLUCOSE META BOLISM/PREDIABETIC >= 6.5% ABNORMAL Procedures Date Code Description Status 11/22/2014 [id number] Colonoscopy Completed Medical Devices Description No Information Available Encounters Type Date Location Provider Dx Diagnosis Office Visit 03/16/2020 2:30p Main Office Diana Thomas PA Z00.00 Encntr for general adult medical exam w/o abnormal findings I10 Essential (primary) hyperten ramona E78.2 Mixed hyperlipidemia F43.23 Adjustment disorder with mix ed anxiety and depressed mood R73.01 Impaired fasting glucose C61 Malignant neoplasm of prosta te Z23 Encounter for immunization Assessments Date Code Description Provider 03/16/2020 Z00.00 Encounter for general adult medi nat examination without abno Diana Thomas PA 03/16/2020 I10 Essential (primary) hypertension Diana Thomas PA 03/16/2020 E78.2 Mixed hyperlipidemia Diana Thomas PA 03/16/2020 F43.23 Adjustment disorder with mixed a nxiety and depressed mood Diana Thomas PA 03/16/2020 R73.01 Impaired fasting glucose Diana Steele PA 03/16/2020 C61 Malignant neoplasm of prostate P Diana amezcua PA 03/16/2020 Z23 Encounter for immunization Diana Noriega PA Plan of Treatment No Information Available Functional Status Functional Condition Comment Date Status Independent with all ADL's Activ e Bifocal glasses Active Independent with all IADL's Acti ve Mental Status Mental Condition Comment Date Status None Active Referrals Refer to Dr Reason for Referral Status Appt Date [facility] pt is due to [address] pantoja Scheduled 03/27/[address] [place] [address], [address] [place] [address] [phone]
--- OUTSIDE RECORDS SUMMARY | 2020-06-15 06:56 | CCD ---
Author Author [facility] Organization [facility] Address Unknown Phone Unavailable Care Team Providers Care Sweater Designer Name Role Phone TERESA ROSALES MD Unavailable Unavailable TERESA ROSALES MD Unavailable Unavailable TERESA ROSALES MD Unavailable Unavailable TERESA ROSALES MD Unavailable Unavailable TERESA ROSALES MD Unavailable Unavailable TERESA ROSALES MD Unavailable Unavailable TERESA ROSALES MD Unavailable Unavailable TERESA ROSALES MD Unavailable Unavailable TERESA ROSALES MD Unavailable Unavailable TERESA ROSALES MD Unavailable Unavailable TERESA ROSALES MD Unavailable Unavailable TERESA ROSALES MD Unavailable Unavailable TERESA ROSALES MD Unavailable Unavailable TERESA ROSALES MD Unavailable Unavailable TERESA ROSALES MD Unavailable Unavailable TERESA ROSALES MD Unavailable Unavailable TERESA ROSALES MD Unavailable Unavailable TERESA ROSALES MD Unavailable Unavailable TERESA ROSALES MD Unavailable Unavailable TERESA ROSALES MD Unavailable Unavailable TERESA ROSALES MD Unavailable Unavailable TERESA ROSALES MD Unavailable Unavailable TERESA ROSALES MD Unavailable Unavailable TERESA ROSALES MD Unavailable Unavailable TERESA ROSALES MD Unavailable Unavailable TERESA ROSALES MD Unavailable Unavailable TERESA ROSALES MD Unavailable Unavailable TERESA ROSALES MD Unavailable Unavailable TERESA ROSALES MD Unavailable Unavailable TERESA ROSALES MD Unavailable Unavailable TERESA ROSALES MD Unavailable Unavailable TERESA ROSALES MD Unavailable Unavailable TERESA ROSALES MD Unavailable Unavailable TERESA ROSALES MD Unavailable Unavailable ROSALES, TERESA MARIE MD Unavailable Unavailable ROSALES, TERESA MARIE MD Unavailable Unavailable ROSALES, TERESA MARIE MD Unavailable Unavailable ROSALES, TERESA MARIE MD Unavailable Unavailable ROSALES, TERESA MARIE MD Unavailable Unavailable ROSALES, TERESA MARIE MD Unavailable Unavailable ROSALES, TERESA MARIE MD Unavailable Unavailable ROSALES, TERESA MARIE MD Unavailable Unavailable ROSALES, TERESA MARIE MD Unavailable Unavailable ROSALES, TERESA MARIE MD Unavailable Unavailable ROSALES, TERESA MARIE MD Unavailable Unavailable ROSALES, TERESA MARIE MD Unavailable Unavailable Sarah, A Juan Carlos Unavailable Unavailable Mackay, A Juan Carlos Unavailable Unavailable Sarah, A Juan Carlos Unavailable Unavailable Mackay, A Juan Carlos Unavailable Unavailable Sarah, A Juan Carlos Unavailable Unavailable Mackay, A Juan Carlos Unavailable Unavailable Sarah, A Juan Carlos Unavailable Unavailable Sarah, A Juan Carlos Unavailable Unavailable Mackay, A Juan Carlos Unavailable Unavailable Sarah, A Juan Carlos Unavailable Unavailable Mackay, A Juan Carlos Unavailable Unavailable Sarah, A Juan Carlos Unavailable Unavailable Mackay, A Juan Carlos Unavailable Unavailable Sarah, A Juan Carlos Unavailable Unavailable Mackay, A Juan Carlos Unavailable Unavailable Mackay, A Juan Carlos Unavailable Unavailable Mackay, A Juan Carlos Unavailable Unavailable Sarah, A Juan Carlos Unavailable Unavailable Mackay, A Juan Carlos Unavailable Unavailable Mackay, A Juan Carlos Unavailable Unavailable Sarah, A Juan Carlos Unavailable Unavailable Mackay, A Juan Carlos Unavailable Unavailable Mackay, A Juan Carlos Unavailable Unavailable Sarah, A Juan Carlos Unavailable Unavailable Mackay, A Juan Carlos Unavailable Unavailable Sarah, A Juan Carlos Unavailable Unavailable Sarah, A Juan Carlos Unavailable Unavailable Sarah, A Juan Carlos Unavailable Unavailable Sarah, A Juan Carlos Unavailable Unavailable [place], [place] Diana PA-C Unavailable Unavailabl e [place], [place] Diana PA-C Unavailable Unavailabl e [place], [place] Diana PA-C Unavailable Unavailabl e [place], [place] Diana PA-C Unavailable Unavailabl e [place], [place] Diana PA-C Unavailable Unavailabl e [place], [place] Diana PA-C Unavailable Unavailabl e [place], [place] Diana PA-C Unavailable Unavailabl e [place], [place] Diana PA-C Unavailable Unavailabl e [place], [place] Diana PA-C Unavailable Unavailabl e [place], [place] Diana PA-C Unavailable Unavailabl e [place], [place] Diana PA-C Unavailable Unavailabl e [place], [place] Diana PA-C Unavailable Unavailabl e [place], [place] Diana PA-C Unavailable Unavailabl e [place], [place] Diana PA-C Unavailable Unavailabl e [place], [place] Diana PA-C Unavailable Unavailabl e [place], [place] Diana PA-C Unavailable Unavailabl e [place], [place] Diana PA-C Unavailable Unavailabl e [place], [place] Diana PA-C Unavailable Unavailabl e [place], [place] Diana PA-C Unavailable Unavailabl e [place], [place] Diana PA-C Unavailable Unavailabl e [place], [place] Diana PA-C Unavailable Unavailabl e [place], [place] Diana PA-C Unavailable Unavailabl e [place], [place] Diana PA-C Unavailable Unavailabl e [place], 39 Unavailable Unavailable Abena Dobbins MD Unavailable Unavailable Abena Dobbins MD Unavailable Unavailable Abena Dobbins MD Unavailable Unavailable Abena Dobbins MD Unavailable Unavailable Abena Dobbins MD Unavailable Unavailable Abena Dobbins MD Unavailable Unavailable Abnea Dobbnis MD Unavailable Unavailable Abena Dobbins MD Unavailable Unavailable Abena Dobbins MD Unavailable Unavailable Abena Dobbins MD Unavailable Unavailable Abena Dobbins MD Unavailable Unavailable Abena Dobbins MD Unavailable Unavailable Abena Dobbins MD Unavailable Unavailable Abena Dobbins MD Unavailable Unavailable Abena Dobbins MD Unavailable Unavailable Abena Dobbins MD Unavailable Unavailable Abena Dobbins MD Unavailable Unavailable Abena Dobbins MD Unavailable Unavailable Abena Dobbins MD Unavailable Unavailable Abena Dobbins MD Unavailable Unavailable Abena Dobbins MD Unavailable Unavailable Abena Dobbins MD Unavailable Unavailable Abena Dobbins MD Unavailable Unavailable Abena Dobbins MD Unavailable Unavailable Abena Dobbins MD Unavailable Unavailable Abena Dobbins MD Unavailable Unavailable DeBlasio, S Ashok HAMMONDS Unavailable Unavailable DeBlasio, S Ashok MD Unavailable Unavailable DeBlasio, S Ashok MD Unavailable Unavailable DeBlasio, S Ashok MD Unavailable Unavailable DeBlasio, S Ashok MD Unavailable Unavailable DeBlasio, S Ashok MD Unavailable Unavailable DeBlasio, S Ashok MD Unavailable Unavailable DeBlasio, S Ashok MD Unavailable Unavailable DeBlasio, S Ashok MD Unavailable Unavailable DeBlasio, S Ashok MD Unavailable Unavailable DeBlasio, S Ashok MD Unavailable Unavailable Re-disclosure Warning The records that you are about to access may contain information from federally-assisted alcohol or drug abuse programs. If such information is present, then the following federally mandated warning applies: This information has been disclosed to you from records protected by federal confidentiality rules (42 CFR part 2). The federal rules prohibit you from making any further disclosure of this information unless further disclosure is expressly permitted by the written consent of the person to whom it pertains or as otherwise permitted by 42 CFR part 2. A general authorization for the release of medical or other information is NOT sufficient for this purpose. The Federal rules restrict any use of the information to criminally investigate or prosecute any alcohol or drug abuse patient.The records that you are about to access may contain highly sensitive health information, the redisclosure of which is protected by Article 27-F of the [facility] Public Health law. If you continue you may have access to information: Regarding HIV / AIDS; Provided by facilities licensed or operated by the [facility] Office of Mental Health; or Provided by the [facility] Office for People With Developmental Disabilities. If such information is present, then the following [facility] mandated warning applies: This information has been disclosed to you from confidential records which are protected by state law. State law prohibits you from making any further disclosure of this information without the specific written consent of the person to whom it pertains, or as otherwise permitted by law. Any unauthorized further disclosure in violation of state law may result in a fine or intermediate sentence or both. A general authorization for the release of medical or other information is NOT sufficient authorization for further disc losure. Family History Family Member Name Family Member Gender Family Member Status Date o f Status Description Data Source(s) Unknown Female Problem [facility] ([facility] Unknown Female Problem [facility] ([facility] Encounters Encounter Providers Location Date Indications Data Source(s ) Outpatient Attender: Diana Álvarez PA-C Main Office 03/16/2020 01:30:00 PM EST [facility] ([facility] [address] [place] [phone] 12/31/2019 12:00:00 AM EDT eCW1 ([facility]) Outpatient Attender: Juan Carlos Snider: Ashok lewis MD [address] [place] [address] 12/10/2019 12:00:00 AM EDT Malignant neoplasm of prostate [facility] Malignant neoplasm of prostate Outpatient Attender: Juan Carlos Snider: Ashok lewis MD 12/10/2019 12:00:00 AM [facility] Outpatient Referrer: Ashok Dobbins MD 12/08/2019 12:00:0 0 AM [facility] Outpatient Attender: CYNTHIA BONILLAeferrer: Ashok Dobbins MD [address] [place] [address] 12/08/2019 12:00:00 AM EDT Malignant neoplasm of prostate [facility] Malignant neoplasm of prostate Outpatient Referrer: Ashok Dobbins MD 12/06/2019 12:00:0 0 AM [facility] Outpatient Referrer: Ashok Dobbins MD 11/19/2019 12:00:0 0 AM [facility]rology [address] [place] [phone] 08/24/2019 12:00:00 AM EDT eCW1 ([facility]) [facility] Urology [address] [place] [phone] 08/23/2019 12:00:00 AM EDT eCW1 ([facility]) [facility] Center [address] [place] [phone] 08/03/2019 12:00:00 AM EDT eCW1 ([facility]) [facility]rology [address] [place] [phone] 07/27/2019 12:00:00 AM EDT eCW1 ([facility]) [facility] Urology [address] [place] [phone] 07/20/2019 12:00:00 AM EDT eCW1 ([facility]) Outpatient Referrer: 39 NRI 07/17/2019 10:28:00 AM EDT [facility] Outpatient Referrer: 39 NRI 06/29/2019 04:12:00 PM EST [facility] U[facility] Center [address] [place] [phone] 06/29/2019 12:00:00 AM EST eCW1 ([facility]) [facility] Center [address] [place] [phone] 06/22/2019 12:00:00 AM EST eCW1 ([facility]) [facility] Center [address] [place] [phone] 05/28/2019 12:00:00 AM EST eCW1 ([facility]) [facility] Center [address] [place] [phone] 05/21/2019 12:00:00 AM EST eCW1 ([facility]) Immunizations Vaccine Date Status Description Data Source(s) Pneumococcal conjugate PCV 13 03/16/2020 02:04:00 PM EST completed [facility] ([facility] New in 2012. IIV4 03/16/2020 02:04:00 PM EST completed [facility] ([facility] Medications Medication Brand Name Start Date Product Form Dose Route Admi nistrative Instructions Pharmacy Instructions Status Indications Reaction Description Data Source(s) Sulfamethoxazole 800 MG / Trimethoprim 1 60 MG Oral Tablet [Bactrim] Bactrim DS 800-160 MG Bactrim DS 800-160 MG 05/28/2019 12:00:00 AM EST active 1 tablet the night before your procedure and 1 the mor bruno of eCW1 ([facility]) Sulfamethoxazole 800 MG / Trimethoprim 1 60 MG Oral Tablet [Bactrim] Bactrim DS 800-160 MG Bactrim DS 800-160 MG 05/28/2019 12:00:00 AM EST active 1 tablet the night before your biopsy and 1 the mornin g of eCW1 ([facility]) Sodium Phosphate, Dibasic 59.3 MG/ML / S odium Phosphate, Monobasic 161 MG/ML Enema Fleet Enema 7-19 GM/118ML Fleet Enema 7-19 GM/118ML 05/28/2019 12:00:00 AM EST active as directed eCW1 ([facility]) Sodium Phosphate, Dibasic 59.3 MG/ML / S odium Phosphate, Monobasic 161 MG/ML Enema Fleet Enema 7-19 GM/118ML Fleet Enema 7-19 GM/118ML 05/28/2019 12:00:00 AM EST active as directed eCW1 ([facility]) Sodium Phosphate, Dibasic 59.3 MG/ML / S odium Phosphate, Monobasic 161 MG/ML Enema Fleet Enema 7-19 GM/118ML Fleet Enema 7-19 GM/118ML 05/28/2019 12:00:00 AM EST active as directed eCW1 ([facility]) Sulfamethoxazole 800 MG / Trimethoprim 1 60 MG Oral Tablet [Bactrim] Bactrim DS 800-160 MG Bactrim DS 800-160 MG 05/28/2019 12:00:00 AM EST active 1 tablet the night before your biopsy and 1 the mornin g of eCW1 ([facility]) Sodium Phosphate, Dibasic 59.3 MG/ML / S odium Phosphate, Monobasic 161 MG/ML Enema Fleet Enema 7-19 GM/118ML Fleet Enema 7-19 GM/118ML 05/28/2019 12:00:00 AM EST active as directed eCW1 ([facility]) Sulfamethoxazole 800 MG / Trimethoprim 1 60 MG Oral Tablet [Bactrim] Bactrim DS 800-160 MG Bactrim DS 800-160 MG 05/28/2019 12:00:00 AM EST active 1 tablet the night before your procedure and 1 the mor bruno of eCW1 ([facility]) Insurance Providers Payer name Policy type / Coverage type Policy ID Covered green party ID Covered green party's relationship to burch Policy Burch Plan Information [employer] [place] [employer] [id number] SP [id number] [employer] [place] [employer] [id number] SP [id number] MEDICARE [id number] SP [id number] [facility] [id number] SP 1 [id number] MEDICARE A [id number] Self [id number] [facility] [place] [id number] Self [id number] UNITED [id number] Self [id number] [facility] [id number] 1 [id number] [facility] O [id number] S [id number] [facility] O [id number] S 1 [id number] [facility] [id number] SP 1 [id number] [employer] [place] 306/806 [id number] BC[employer] Commercial [id number] Family Dependent [id number] [facility] Commercial [id number] Self [id number] [employer] [place] 306/806 [id number] [employer] [facility] [place] [facility] Maintenance Organization (HMO) Family Dependent BCBS/[employer] Commercial Family Dependent [employer] [place] 306/806 [id number] Problems, Conditions, and Diagnoses Code Display Name Description Problem Type Effective Dates Data Source(s) C61 Prostate cancer Prostate cancer Problem 06/29/2019 12:0 0:00 AM EST eCW1 ([facility]) R97.20 Elevated PSA Elevated PSA Problem 05/28/2019 12:00:00 A M EST eCW1 ([facility]) C61 Malignant neoplasm of prostate Malignant neoplasm of p rostate Diagnosis 12/10/2019 03:43:26 PM [facility] Surgeries/Procedures Procedure Description Date Indications Data Source(s) PLACE RT DEVICE/MARKER PROS 08/24/2019 12:00:00 AM EDT eCW1 ([facility]) ECHO GUIDE FOR BIOPSY 08/24/2019 12:00:00 AM EDT eCW1 ([facility]) BIOPSY OF PROSTATE 06/22/2019 12:00:00 AM EST eCW1 ([facility]) US URINE CAPACITY MEASURE 05/28/2019 12:00:00 AM EST eCW1 ([facility]) Results ID Date Data Source [id number] 06/10/2020 09:15:00 AM EST [facility] Name Value Range Interpretation Code Description Data Kathrin rce(s) Supporting Document(s) SARS coronavirus 2 RNA Not Detected [facility] [place] This lab was ordered by [facility] and reported by [facility]. ID Date Data Source [id number] 03/20/2020 02:05:00 PM EST [facility] ([facility] Name Value Range Interpretation Code Description Data Kathrin rce(s) Supporting Document(s) Hemoglobin A1c 5.5 % [facility] ([facility] <content>REFERENCE RANGES:</content><br/ ><content></content>
<content><=5.6% NORMAL</content>
<content>5.7-6.4% SUGGESTS IMPAIRED GLUCOSE METABOLISM/PREDIABETIC</content>
<content>>= 6.5% ABNORMAL</content>
<content></content> Estimated Average Glucose 111 mg/dL 60-110 [facility] ([facility] ID Date Data Source [id number] 03/20/2020 02:05:00 PM EST [facility] ([facility] Name Value Range Interpretation Code Description Data Kathrin rce(s) Supporting Document(s) Glucose, Fasting 104 mg/dL 70-100 [facility] ([facility] Blood Urea Nitrogen 20 mg/dL 7-18 [facility] ([facility] Glomerular Filtration Rate Laboratory test result [facility] ([facility] <content>Units are mL/min/1.73 m2</content>
<content></content>
<content>Chronic Kidney Disease Staging per NKF:</content>
<content></content>
<content>Stage I & II GFR >=60 Normal to Mildly Decreased</content>
<content>Stage III GFR 30- 59 Moderately Decreased</content>
<content>Stage IV GFR 15-29 Severely Decreased</content>
<content>Stage V GFR <15 Very Little GFR Left</content>
<content>ESRD GFR <15 on COMMERCIAL LOAN OFFICER</content>
<content></content> Creatinine For GFR 1.12 mg/dL 0.70-1.30 [facility] ([facility] Sodium Level 140 meq/L 136-145 [facility] ([facility] Carbon Dioxide Level 29 meq/L 21-32 [facility] ([facility] Potassium Serum 4.4 meq/L 3.5-5.1 [facility] ([facility] Chloride Level 105 meq/L 98-107 [facility] ([facility] Ast/Sgot 12 U/L 7-37 [facility] ([facility] Anion Gap 6 meq/L 8-16 [facility] ([facility] Calcium Level 9.0 mg/dL 8.8-10.2 [facility] ([facility] Alkaline Phosphatase 97 U/L 45-117 [facility] ([facility] Total Protein 7.6 GM/DL 6.4-8.2 [facility] ([facility] Bilirubin,Total 0.4 mg/dL 0.2-1.0 [facility] ([facility] Alt/SGPT 19 U/L 12-78 [facility] ([facility] Albumin 4.3 GM/DL 3.2-5.2 [facility] ([facility] Albumin/Globulin Ratio 1.3 [facility] ([facility] ID Date Data Source [id number] 03/20/2020 02:05:00 PM EST [facility] ([facility] Name Value Range Interpretation Code Description Data Kathrin rce(s) Supporting Document(s) Triglycerides Level 356 mg/dL [facility] ([facility] HDL Cholesterol 33 mg/dL [facility] ([facility] Cholesterol Level 152 mg/dL [facility] ([facility] LDL Cholesterol 48 mg/dL [facility] ([facility] Non-HDL-C 119 mg/dL [facility] ([facility] Cholesterol Risk Ratio 4.606 [facility] ([facility] ID Date Data Source [id number] 12/10/2019 03:47:53 PM T [facility] Name Value Range Interpretation Code Description Data Kathrin rce(s) Supporting Document(s) Progress Note [facility] [id number] lbm [file] DQo= ID Date Data Source [id number] 12/08/2019 04:00:28 PM EDT [facility] Name Value Range Interpretation Code Description Data Kathrin rce(s) Supporting Document(s) Progress Note [facility] [id number] lbm [file] [id number] ID Date Data Source [id number] 09/07/2019 02:00:00 PM EDT [facility] ([facility] Name Value Range Interpretation Code Description Data Kathrin rce(s) Supporting Document(s) [place] % 11.3 % 0.0-5.0 [facility] ([facility] Lymph % 27.6 % 24.0-44.0 [facility] ([facility] Neutrophils % 57.7 % 36.0-66.0 [facility] ([facility] Baso % 0.8 % 0.0-1.0 [facility] ([facility] Eos % 2.2 % 0.0-3.0 [facility] ([facility] Immature Granulocyte % 0.4 % 0-3.0 [facility] ([facility] Lymph # 2.5 10 1.5-5.0 [facility] ([facility] Neutrophils # 5.3 10 1.5-8.5 [facility] ([facility] Baso # 0.1 10 0.0-0.2 [facility] ([facility] [place] # 1.0 10 0.0-0.8 [facility] ([facility] Eos # 0.2 10 0.0-0.5 [facility] ([facility] ID Date Data Source [id number] 09/07/2019 02:00:00 PM EDT [facility] ([facility] Name Value Range Interpretation Code Description Data Kathrin rce(s) Supporting Document(s) White Blood Count 9.1 10 4.0-10.0 [facility] ([facility] Red Blood Count 4.18 10 4.30-6.10 [facility] ([facility] Hematocrit 40.3 % 42.0-52.0 [facility] ([facility] Hemoglobin 13.8 g/dL 13.5-17.5 [facility] ([facility] Mean Corpuscular Volume 96.4 fl 80.0-96.0 M EDENT ([facility] Mean Corpuscular HGB Conc 34.2 g/dL 32.0-36.5 [facility] ([facility] Red Cell Distribution Width 13.0 % 11.5-14.5 [facility] ([facility] Mean Corpuscular Hemoglobin 33.0 pg 27.0-33.0 [facility] ([facility] Nucleated Red Blood Cell % 0.0 % 0-0 [facility] ([facility] Platelet Count, Automated 237 10 150-450 [facility] ([facility] ID Date Data Source [id number] 05/11/2019 02:54:00 PM EST [facility] ([facility] Name Value Range Interpretation Code Description Data Kathrin rce(s) Supporting Document(s) Hemoglobin A1c 5.8 % [facility] ([facility] REFERENCE RANGES: 4.5-5.6% NORMAL 5.7-6.4% SUGGESTS IMPAIRED GLUCOSE META BOLISM >= 6.5% ABNORMAL Estimated Average Glucose 120 mg/dL 60-110 [facility] ([facility] ID Date Data Source [id number] 05/11/2019 02:54:00 PM EST [facility] ([facility] Name Value Range Interpretation Code Description Data Kathrin rce(s) Supporting Document(s) PSA Free 1.27 ng/mL [facility] ([facility] Saige ECLIA methodology. PSA Total 7.6 ng/mL 0.0-4.0 [facility]AD[facility]SH ([facility] Saige ECLIA methodology. . According to the [place] [employer], Serum PSA should decrease and remain at undetectable levels after radical prostatectomy. The AUA defines biochemical recurrence as an initial PSA value 0.2 ng/mL or greater followed by a subsequent confirmatory PSA value 0.2 ng/mL or greater. Values obtained with different assay methods or kits cannot be used interchangeably. Results cannot be interpreted as absolute evidence of the presence or absence of malignant disease. PSA % Free 16.7 % [facility] ([facility] The table below lists the probability of prostate cancer for men with non-suspicious CATALINA results and total PSA between 4 and 10 ng/mL, by patient age (Melchor et al, JERI 1998, [id number]:1542). % Free PSA 50-64 yr 65-75 yr 0.00-10.00% 56% 55% 10.01-15.00% 24% 35% 15.01-20.00% 17% 23% 20.01-25.00% 10% 20% >25.00% 5% 9% Please note: Melchor et al did not make specific recommendations regarding the use of percent free PSA for any other population of men. PSA Comment Laboratory test result LADY T ([facility] . The percent free PSA is performed on a reflex basis only when the total PSA is between 4.0 and 10.0 ng/mL. Performed at: RN - [facility] [address] [id number] Pin Attacher: Suha Young MD, Phone: [phone] Procedure Vital Signs ID Date Data Source UNK Name Value Range Interpretation Code Description Data Source(s) Body surface area Derived from formula 2.31 m2 2.31 m2 [facility] ([facility], ) Body weight 115.214 kg 115.214 kg [facility] ([facility], ) Sprakers body weight 166 [lb_av] 166 [lb_av] MEDEN T ([facility]) Body mass index (BMI) [Ratio] 36.4 kg/m2 36.4 k g/m2 [facility] ([facility]) Body weight 254.00 [lb_av] 254.00 [lb_av] MEDEN T ([facility]) Body height 70 [in_i] 70 [in_i] [facility] ([facility]) 5'10" Diastolic blood pressure 78 mm[Hg] 78 mm[facility]Hg[facility] Systolic blood pressure 132 mm[Hg] 132 mm[Hg] [facility] Body mass index (BMI) [Ratio] 37.5 kg/m2 37.5 k g/m2 [facility] ([facility] Sprakers body weight 160 [lb_av] 160 [lb_av] MEDEN T ([facility] Oxygen saturation in Arterial blood by Pulse oximetry 97 % 97 % [facility] ([facility] Body weight 254.12 [lb_av] 254.12 [lb_av] [facility] T ([facility] Body height 69 [in_i] 69 [in_i] [facility] ([facility] 5'9" Respiratory rate 18 /min 18 /min [facility] ( [facility] Body temperature 97.0 [degF] 97.0 [degF] [facility] ([facility] Heart rate 100 /min 100 /min [facility] ([facility] Diastolic blood pressure 58 mm[Hg] 58 mm[Hg] [facility] ([facility] Systolic blood pressure 117 mm[Hg] 117 mm[Hg] [facility] Diastolic blood pressure mm[Hg] eCW1 ([facility]) Systolic blood pressure 128 mm[Hg] 128 mm[Hg] e CW1 ([facility]) Body temperature 97.7 [degF] 97.7 [degF] eCW1 ( [facility]) Respiratory rate 17 /min 17 /min eCW1 ([facility]) Heart rate 88 /min 88 /min eCW1 ([facility]) Body mass index (BMI) [Ratio] 37.02 kg/m2 37.02 kg/m2 eCW1 ([facility]) Body height 70 [in_us] 70 [in_us] eCW1 ([facility]) Body weight Measured 258 [lb_av] 258 [lb_av] eC W1 ([facility]) Diastolic blood pressure mm[Hg] eCW1 ([facility]) Systolic blood pressure 128 mm[Hg] 128 mm[Hg] e CW1 ([facility]) Body temperature 97.8 [degF] 97.8 [degF] eCW1 ( [facility]) Respiratory rate 18 /min 18 /min eCW1 ([facility]) Heart rate 80 /min 80 /min eCW1 ([facility]) Body mass index (BMI) [Ratio] 37.16 kg/m2 37.16 kg/m2 eCW1 ([facility]) Body height 70 [in_us] 70 [in_us] eCW1 ([facility]) Body weight Measured 259 [lb_av] 259 [lb_av] eC W1 ([facility]) Diastolic blood pressure mm[Hg] eCW1 ([facility]) Systolic blood pressure 138 mm[Hg] 138 mm[Hg] e CW1 ([facility]) Body temperature 97.9 [degF] 97.9 [degF] eCW1 ( [facility]) Respiratory rate 18 /min 18 /min eCW1 ([facility]) Heart rate 86 /min 86 /min eCW1 ([facility]) Body mass index (BMI) [Ratio] 37.59 kg/m2 37.59 kg/m2 eCW1 ([facility]) Body height 70 [in_us] 70 [in_us] eCW1 ([facility]) Body weight Measured 262 [lb_av] 262 [lb_av] eC W1 ([facility]) Diastolic blood pressure mm[Hg] eCW1 ([facility]) Systolic blood pressure 122 mm[Hg] 122 mm[Hg] e CW1 ([facility]) Body temperature 99.0 [degF] 99.0 [degF] eCW1 ( [facility]) Respiratory rate 18 /min 18 /min eCW1 ([facility]) Heart rate 86 /min 86 /min eCW1 ([facility]) Body mass index (BMI) [Ratio] 37.16 kg/m2 37.16 kg/m2 eCW1 ([facility]) Body height 70 [in_us] 70 [in_us] eCW1 ([facility]) Body weight Measured 259 [lb_av] 259 [lb_av] eC W1 ([facility]) Diastolic blood pressure 88 mm[Hg] 88 mm[Hg] eCW1 ([facility]) Systolic blood pressure 154 mm[Hg] 154 mm[Hg] e CW1 ([facility]) Body temperature 97.8 [degF] 97.8 [degF] eCW1 ( [facility]) Respiratory rate 18 /min 18 /min eCW1 ([facility]) Heart rate 81 /min 81 /min eCW1 ([facility]) Body mass index (BMI) [Ratio] 37.59 kg/m2 37.59 kg/m2 eCW1 ([facility]) Body height 70 [in_us] 70 [in_us] eCW1 ([facility]) Body weight Measured 262 [lb_av] 262 [lb_av] eC W1 ([facility]) Patient Treatment Plan of Care Planned Activity Planned Date Details Description Data Source (s) Sulfamethoxazole 800 MG / Trimethoprim 160 MG Oral Tab let [Bactrim] 05/28/2019 12:00:00 AM EST eCW1 ([facility]) Sodium Phosphate, Dibasic 59.3 MG/ML / S odium Phosphate, Monobasic 161 MG/ML Enema 05/28/2019 12:00:00 AM EST eCW1 ([facility]) Sodium Phosphate, Dibasic 59.3 MG/ML / S odium Phosphate, Monobasic 161 MG/ML Enema 05/28/2019 12:00:00 AM EST eCW1 ([facility]) Sulfamethoxazole 800 MG / Trimethoprim 160 MG Oral Tab let [Bactrim] 05/28/2019 12:00:00 AM EST eCW1 ([facility])
--- OUTSIDE RECORDS SUMMARY | 2020-06-15 06:56 | CCD | Continuity of Care Document ---
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 Phone [facility] - Surgery AUTM [phone] Problems Active Problems Provider Date Essential hypertension [...] CPT Code Status Date Vaccine Lot # [id number] Given 03/16/2020 Influenza Virus Vaccine, Quadrivalent,age 3 and up,multidose vial [id number] Given 03/16/2020 Prevnar 13 [id number] Given 10/12/2015 Boostrix (Tdap) Tetnus, Diphtheria Toxoids & Acellular Pertussis [id number] Vital Signs Date Vital Result Comment 03/16/2020 2:46pm BP Systolic 117 mmHg BP Diastolic 58 mmHg Heart Rate 100 /min Body Temperature 97.0 F Respiratory Rate 18 /min Height 69 inches 5'9" Weight 254.12 lb O2 % BldC Oximetry 97 % Peak Expiratory Flow Rate 494 Estimated Peak Flow Rate [place] Body Weight 160 lb BMI (Body Mass Index) 37.5 kg/m2 03/23/2019 2:59pm BP Systolic 121 mmHg BP Diastolic 73 mmHg Heart Rate 78 /min Body Temperature 99.0 F Respiratory Rate 16 /min Height 68.50 inches 5'8.50" Weight 256.38 lb O2 % BldC Oximetry 98 % Peak Expiratory Flow Rate 481 Estimated Peak Flow Rate [place] Body Weight 154 lb BMI (Body Mass Index) 38.4 kg/m2 Results Description No Information Available Procedures Date Code Description Status 11/22/2014 64024040 Colonoscopy Completed Medical Devices Description No Information [...] 03/16/2020 C61 Malignant neoplasm of prostate P etrancoDiana velazquez PA 03/16/2020 Z23 Encounter for immunization Diana Noriega PA Plan of Treatment No Information Available Functional Status Functional Condition Comment Date Status Independent with all ADL's Activ e Bifocal glasses Active Independent with all IADL's Acti ve Mental Status Mental Condition Comment Date Status None Active Referrals Refer to Reason for Referral Status Appt Date [facility] pt is due to [address] pantoja Created [address] [facility], [address] [place] [address] [phone]
[2020-06-15] MEDS ORDERED: LIDOCAINE 2% 100MG/5ML SDV (FOR ANES.) As Ordered ONE (07:44)
[2020-06-15] MEDS ORDERED: propofoL 200 MG/20 ML VIAL As Ordered ONE ×3 (07:44→07:50)
--- NOTE | 2020-06-15 08:09 | ROOR ---
Patient Name: Austin Larson Procedure Date: 06/15/2020 7:28 AM Date of : 1955 Age: 64 Room: [facility] Gender: Male Note Status: Finalized Procedure: Colonoscopy Indications: Screening in patient at increased risk: Colorectal cancer in mother 60 or older, Last colonoscopy: November 2014 Providers: Oleksandr Espino MD Referring MD: Fozia Bruno MD Requesting Provider: Medicines: Monitored Anesthesia Care Complications: No immediate complications. Procedure: Pre-Anesthesia Assessment: - Prior to the procedure, a History and Physical was performed, and patient medications and allergies were reviewed. The patient is competent. The risks and benefits of the procedure and the sedation options and risks were discussed with the patient. All questions were answered and informed consent was obtained. Patient identification and proposed procedure were verified by the physician, the nurse and the admissions advisor in the procedure room. Mental Status Examination: alert and oriented. Airway Examination: normal oropharyngeal airway and neck mobility. Prophylactic Antibiotics: The patient does not require prophylactic antibiotics. Prior Anticoagulants: The patient has taken no previous anticoagulant or antiplatelet agents. ASA Grade Assessment: II - A patient with mild systemic disease. After reviewing the risks and benefits, the patient was deemed in satisfactory condition to undergo the procedure. The anesthesia plan was to use monitored anesthesia care (MAC). Immediately prior to administration of medications, the patient was re-assessed for adequacy to receive sedatives. The heart rate, respiratory rate, oxygen saturations, blood pressure, adequacy of pulmonary ventilation, and response to care were monitored throughout the procedure. The physical status of the patient was re-assessed after the procedure. The Colonoscope was introduced through the anus and advanced to the cecum, identified by appendiceal orifice and ileocecal valve. The colonoscopy was performed without difficulty. The patient tolerated the procedure well. The quality of the bowel preparation was excellent. Findings: The perianal and digital rectal examinations were normal. Multiple medium-mouthed diverticula were found in the sigmoid colon. Multiple small localized angioectasias without bleeding were found in the rectum. This was in the area of his prostate radiation. Impression: - Diverticulosis in the sigmoid colon. - Multiple non-bleeding colonic angioectasias. - No specimens collected. Recommendation: - Discharge patient to home. - Resume previous diet. - Continue present medications. - Repeat colonoscopy in 5 years for screening purposes. Procedure Code(s): --- Professional --- 87365, Colonoscopy, flexible; diagnostic, including collection of specimen(s) by brushing or washing, when performed (separate procedure) Diagnosis Code(s): --- Professional --- Z80.0, Family history of malignant neoplasm of digestive organs K55.20, Angiodysplasia of colon without hemorrhage K57.30, Diverticulosis of large intestine without perforation or abscess without bleeding CPT copyright 2019 [employer]. All rights reserved. The codes documented in this report are preliminary and upon pharmaceutical sales review may be revised to meet current compliance requirements. Oleksandr Espino MD Oleksandr Espino MD 06/15/2020 8:09:17 AM Electronically signed by Oleksandr Espino MD Number of Addenda: 0 Note Initiated On: 06/15/2020 7:28 AM Estimated Blood Loss: Estimated blood loss was minimal.
[2020-06-15 08:20] VITALS: BP 119/72
== END 2020-06-15 08:25 | disposition home or self-care (01) ==
LOC: M OPP 06:48
PROVIDERS: ATTEND Surgery
DX: Z12.11 Encounter for screening for malignant neoplasm of colon (principal); Z80.0 Family history of malignant neoplasm of digestive organs; K55.20 Angiodysplasia of colon without hemorrhage; K57.30 Diverticulosis of large intestine without perforation or abscess without bleeding; I10 Essential (primary) hypertension; E78.5 Hyperlipidemia, unspecified; M19.90 Unspecified osteoarthritis, unspecified site; F32.9 Major depressive disorder, single episode, unspecified; Z85.46 Personal history of malignant neoplasm of prostate; Z92.3 Personal history of irradiation; Z79.899 Other long term (current) drug therapy

== ENCOUNTER → 2020-08-14 | Outpatient (REF) | payer OTHER ==
[~2020-08-14] MED LIST changes: -NS 1,000 ML IV ONE
== END ==
LOC: M LABSMT 14:01 → M SFHCADAM 14:01
PROVIDERS: ATTEND Urology
DX: C61 Malignant neoplasm of prostate (principal)

== ENCOUNTER → 2020-11-25 | Outpatient (REF) | payer OTHER | LOC: M LAB REF 19:43 | PROVIDERS: ATTEND Physician Assistant | DX: R30.0 Dysuria (principal) ==

== ENCOUNTER → 2021-02-21 | Outpatient (REF) | payer OTHER | LOC: M LAB REF 16:29 → M LABDRWAD 16:29 | PROVIDERS: ATTEND General Practice | DX: C61 Malignant neoplasm of prostate (principal) ==

== ENCOUNTER → 2021-02-28 | Outpatient (CLI) | payer BC, OTHER, SELFPAY ==
[~2021-02-28] MED LIST changes: +MYRB25TA PO; +TAMS1CAP17 PO
--- NOTE | 2021-02-28 12:30 | RADONC ---
Radiation Oncology Hx/FUP Radiation Oncology Hx/FUP Date of Service: Feb 28, 2021 Pt Identifier Austin Larson is a 65 year old male seen for a followup visit today at the department of radiation oncology for a history of low risk prostate cancer T1c Lc 3+3=6 PSA 7.6 who opted for treatment and completed EBRT 79.2 Gy in 44 fractions 12/08/19 (final 3 fractions of treatment delivered at [facility] due to system wide computer outage at [facility]). Diagnosis/Treatment History Oncologic History PSA trend: 03/31/19 7.0 ng/ml 05/11/19 7.6 02/22/20 1.65 02/21/21 0.25 06/22/19 TRUS biopsy [place] 3+3=6 in 3/12 cores Interval History Dirk reports some daytime urinary urgency, as well as ongoing nocturia. He is taking flomax 0.4 mg currently. He has no BRBPR or loose bowel movements. He has no pain. Appetite good and weight stable. Current Therapy Surveillance Stage Low risk prostate cancer T1c [place] 3+3=6 PSA 7.6 Social History: Non-smoker Non-Drinker Allergies / Meds Allergies: Coded Allergies: No Known Allergies (Unverified , 06/05/20) Home Meds Active Scripts Mirabegron (Myrbetriq) 25 Mg Tab.er.24h, 1 TAB PO DAILY for 30 Days, #30 TAB 5 Refills Prov:GER CASIANO MD 02/28/21 Tamsulosin Hcl (Tamsulosin HCl) 0.4 Mg Capsule, 2 CAP PO QHS, #60 CAP 5 Refills Prov:GER CASIANO MD 02/28/21 Reported Medications Escitalopram Oxalate (Lexapro) 5 Mg Tablet, 5 MG PO 2XW, TAB 08/17/19 Simvastatin (Simvastatin) 20 Mg Tablet, 20 MG PO DAILY, TAB 08/17/19 Losartan/Hydrochlorothiazide (Losartan-Hctz 100-12.5 mg Tab) 1 Each Tablet, 1 TAB PO DAILY, TAB 08/17/19 Review of Systems Review of Systems Constitutional: Denies: Fatigue, Weight Loss Eyes: Denies: Pain HEENT: Denies: Head Aches Gastrointestinal: Denies: Abdominal Pain, Diarrhea, Hematochezia Genitourinary: Reports: Frequency; Denies: Dysuria, Incontinence Neurological: Denies: Weakness, Numbness Psych: Reports: Mood Normal Physical Examination Vital Signs Wt 258 lbs T 96.3 P 77 RR 17 BP 127/78 O2 97% Pain 0 Fatigue 0 General Exam: Alert, Cooperative, No Acute Distress Eye Exam: PERRLA, EOMI Neck Exam: Supple Chest Exam: Clear to auscultation Heart Exam: Rate Normal Abdomen Exam: Soft Extremity Exam: Negative: Edema Skin Exam: Nl turgor and temperature Neuro Exam: Normal Gait, Normal Speech, Cranial Nerves 3-12 NL Psych Exam: Mental status NL Diagnostic and Laboratory Diagnostic Review Radiologic images, relevant labs and pathology reports were personally reviewed and discussed with Mr. Larson. Assessment and Plan Impression Assessment Mr. Larson is a 65 year old male with a history of history of low risk prostate cancer T1c Lc 3+3=6 PSA 7.6 who opted for treatment and completed EBRT 79.2 Gy in 44 fractions 12/08/19 (final 3 fractions of treatment delivered at [facility] due to system wide computer outage at [facility]). His PSA is down to 0.25, this is excellent. However, he has some urinary bother, likely overflow urgency, minus incontinence, as well as some weak stream and nocturia. Discussed trial of flomax @ 0.8 mg. If ineffective he can add myrbetriq 25 mg daily. He will call if these interventions fail to help. He is seeing Dr. Ramos in August 2021. Thus I will see him in 1 year. Performance Status ECOG 0 Plan Flomax to 0.8 mg QHS, myrbetriq 25 mg daily Follow up in 1 year with PSA Mr. Larson was encouraged to call with questions or concerns in the interim period. Billing Statement Total time of [23] minutes was spent preparing for the visit [1], obtaining HPI [5], examining the patient [1], reviewing diagnostic tests [2], discussing management options [5], coordinating care [2], and writing this note [7]. GER CASIANO MD Feb 28, 2021 12:30
== END ==
LOC: M ONCR 11:31
PROVIDERS: ATTEND General Practice
DX: C61 Malignant neoplasm of prostate (principal); Z92.3 Personal history of irradiation; R39.15 Urgency of urination; R35.1 Nocturia; Z79.899 Other long term (current) drug therapy

== ENCOUNTER → 2021-04-03 | Outpatient (REF) | payer BC ==
[2021-04-03 18:19] LABS: BASO # 0.1 10^3/uL (0.0-0.2); BASO % 0.6 % (0.0-1.0); EOS # 0.2 10^3/uL (0.0-0.5); EOS % 1.9 % (0.0-3.0); HEMATOCRIT 42.2 % (42.0-52.0); HEMOGLOBIN 13.3 g/dl (13.5-17.5); LYMPH # 1.7 10^3/uL (1.5-5.0); LYMPH % 16.4 % (24.0-44.0); MEAN CORPUSCULAR HEMOGLOBIN 31.5 pg (27.0-33.0); MEAN CORPUSCULAR HGB CONC 31.5 g/dl (32.0-36.5); MONO # 0.8 10^3/uL (0.0-0.8); MONO % 7.1 % (2.0-8.0); NEUTROPHILS # 7.8 10^3/uL (1.5-8.5); NEUTROPHILS % 73.2 % (36.0-66.0); PLATELET COUNT, AUTOMATED 222 10^3/uL (150-450); RED BLOOD COUNT 4.22 10^6/uL (4.30-6.10); WHITE BLOOD COUNT 10.6 10^3/uL (4.0-10.0)
[2021-04-03 18:38] LABS: C REACTIVE PROTEIN QUANTITATIV 0.43 MG/DL (0.00-0.30); RHEUMATOID FACTOR QUANT < 10.0 IU/ML (<15.0); URIC ACID 5.4 MG/DL (3.5-7.2)
[2021-04-03 18:49] LABS: ERYTHROCYTE SEDIMENTATION RATE 31 mm/hr (0-20)
[2021-04-05 15:09] LABS: ANTINUCLEAR ANTIBODIES DIRECT Negative (Negative); Lyme Disease IgG/IgM Antibodie <0.91 ISR (0.00-0.90); Lyme Disease IgM Ab Quantitati <0.80 index (0.00-0.79)
== END ==
LOC: M LABDRWAD 17:14
PROVIDERS: ATTEND Physician Assistant Surgical
DX: M17.0 Bilateral primary osteoarthritis of knee (principal)

== ENCOUNTER → 2021-04-16 | Outpatient (REF) | payer BC ==
[2021-04-16 17:52] LABS: BASO # 0.1 10^3/uL (0.0-0.2); BASO % 0.6 % (0.0-1.0); EOS # 0.3 10^3/uL (0.0-0.5); EOS % 2.8 % (0.0-3.0); HEMATOCRIT 40.2 % (42.0-52.0); HEMOGLOBIN 13.2 g/dl (13.5-17.5); LYMPH # 1.7 10^3/uL (1.5-5.0); LYMPH % 19.2 % (24.0-44.0); MEAN CORPUSCULAR HGB CONC 32.8 g/dl (32.0-36.5); MEAN CORPUSCULAR VOLUME 97.3 fl (80.0-96.0); MONO % 10.9 % (2.0-8.0); NEUTROPHILS # 5.8 10^3/uL (1.5-8.5); NEUTROPHILS % 64.9 % (36.0-66.0); PLATELET COUNT, AUTOMATED 140 10^3/uL (150-450); RED BLOOD COUNT 4.13 10^6/uL (4.30-6.10); WHITE BLOOD COUNT 8.9 10^3/uL (4.0-10.0)
[2021-04-16 19:23] LABS: ERYTHROCYTE SEDIMENTATION RATE 17 mm/hr (0-20)
== END ==
LOC: M LABDRWAD 16:36
PROVIDERS: ATTEND Physician Assistant Surgical
DX: M17.0 Bilateral primary osteoarthritis of knee (principal)

== ENCOUNTER → 2021-05-03 | Outpatient (CLI) | payer BC ==
[2021-05-03 13:35] LABS: BASO # 0.1 10^3/uL (0.0-0.2); BASO % 0.8 % (0.0-1.0); EOS # 0.3 10^3/uL (0.0-0.5); EOS % 4.9 % (0.0-3.0); HEMATOCRIT 40.3 % (42.0-52.0); HEMOGLOBIN 13.1 g/dl (13.5-17.5); LYMPH # 1.3 10^3/uL (1.5-5.0); LYMPH % 21.1 % (24.0-44.0); MEAN CORPUSCULAR HEMOGLOBIN 32.1 pg (27.0-33.0); MEAN CORPUSCULAR HGB CONC 32.5 g/dl (32.0-36.5); MEAN CORPUSCULAR VOLUME 98.8 fl (80.0-96.0); MONO # 0.7 10^3/uL (0.0-0.8); NEUTROPHILS # 3.8 10^3/uL (1.5-8.5); NEUTROPHILS % 60.5 % (36.0-66.0); PLATELET COUNT, AUTOMATED 188 10^3/uL (150-450); RED BLOOD COUNT 4.08 10^6/uL (4.30-6.10); WHITE BLOOD COUNT 6.3 10^3/uL (4.0-10.0)
[2021-05-03 13:48] LABS: HEMOGLOBIN A1c 5.5 %
[2021-05-03 13:56] LABS: ALBUMIN 4.1 GM/DL (3.2-5.2); ALT/SGPT 25 U/L (12-78); BILIRUBIN,TOTAL 0.4 MG/DL (0.2-1.0); BLOOD UREA NITROGEN 24 MG/DL (7-18); CALCIUM LEVEL 9.1 MG/DL (8.8-10.2); CARBON DIOXIDE LEVEL 29 MEQ/L (21-32); CHLORIDE LEVEL 107 MEQ/L (98-107); CHOLESTEROL LEVEL 143 MG/DL (<200); CHOLESTEROL RISK RATIO 4.612 (<5); CREATININE FOR GFR 1.05 MG/DL (0.70-1.30); GLOMERULAR FILTRATION RATE > 60.0 (>49); GLUCOSE, FASTING 110 MG/DL (70-100); HDL CHOLESTEROL 31 MG/DL (>40); LDL CHOLESTEROL 78 MG/DL (<100); NON-HDL-C 112 MG/DL; POTASSIUM SERUM 4.8 MEQ/L (3.5-5.1); SODIUM LEVEL 140 MEQ/L (136-145); TOTAL PROTEIN 7.6 GM/DL (6.4-8.2); TRIGLYCERIDES LEVEL 170 MG/DL (<150)
== END ==
LOC: M LABDRWAD 08:49
PROVIDERS: ATTEND Family Medicine
DX: I10 Essential (primary) hypertension (principal); R73.01 Impaired fasting glucose; E78.2 Mixed hyperlipidemia

== ENCOUNTER → 2021-05-28 | Outpatient (CLI) | payer BC ==
[~2021-05-28] MED LIST changes: +ISOVUE-300 61% 50ML VIAL As Ordered ONE; +LIDOCAINE 1% MDV 20ML VIAL As Ordered ONE; +methylPREDNISolone SUSP 40MG/ML 1ML VIAL (DEPO MEDROL) As Ordered ONE
== END ==
LOC: M RADPRO 11:09
PROVIDERS: ATTEND Physician Assistant Surgical
DX: M16.11 Unilateral primary osteoarthritis, right hip (principal)
CPT/HCPCS: 20610; 77002; J1030; Q9967

== ENCOUNTER → 2021-08-02 | Outpatient (CLI) | payer BC ==
[~2021-08-02] MED LIST changes: -ISOVUE-300 61% 50ML VIAL As Ordered ONE; -LIDOCAINE 1% MDV 20ML VIAL As Ordered ONE; -methylPREDNISolone SUSP 40MG/ML 1ML VIAL (DEPO MEDROL) As Ordered ONE
[2021-08-02 12:33] LABS: BASO # 0.1 10^3/uL (0.0-0.2); BASO % 0.6 % (0.0-1.0); EOS # 0.4 10^3/uL (0.0-0.5); EOS % 4.2 % (0.0-3.0); HEMATOCRIT 37.7 % (42.0-52.0); HEMOGLOBIN 12.8 g/dl (13.5-17.5); LYMPH # 1.7 10^3/uL (1.5-5.0); MEAN CORPUSCULAR HEMOGLOBIN 33.3 pg (27.0-33.0); MEAN CORPUSCULAR VOLUME 98.2 fl (80.0-96.0); MONO # 0.7 10^3/uL (0.0-0.8); MONO % 7.6 % (2.0-8.0); NEUTROPHILS # 5.9 10^3/uL (1.5-8.5); NEUTROPHILS % 66.8 % (36.0-66.0); PLATELET COUNT, AUTOMATED 220 10^3/uL (150-450); RED BLOOD COUNT 3.84 10^6/uL (4.30-6.10); WHITE BLOOD COUNT 8.8 10^3/uL (4.0-10.0)
[2021-08-02 13:01] LABS: PERCENT SATURATION 19.8 % (19.7-50.0)
[2021-08-02 13:03] LABS: FOLATE 15.6 NG/ML
== END ==
LOC: M ADAMS 09:55
PROVIDERS: ATTEND Family Medicine
DX: D64.9 Anemia, unspecified (principal)

== ENCOUNTER → 2021-08-20 | Outpatient (REF) | payer OTHER | LOC: M SFHCADAM 10:31 | PROVIDERS: ATTEND Physician Assistant | DX: R97.20 Elevated prostate specific antigen [PSA] (principal) ==

== ENCOUNTER → 2021-08-31 | Outpatient (CLI) | payer OTHER, BC ==
[2021-08-31 12:49] LABS: BASO # 0.1 10^3/uL (0.0-0.2); BASO % 0.7 % (0.0-1.0); EOS # 0.3 10^3/uL (0.0-0.5); EOS % 3.9 % (0.0-3.0); HEMOGLOBIN 12.7 g/dl (13.5-17.5); LYMPH # 1.6 10^3/uL (1.5-5.0); LYMPH % 19.5 % (24.0-44.0); MEAN CORPUSCULAR HEMOGLOBIN 33.2 pg (27.0-33.0); MEAN CORPUSCULAR HGB CONC 33.4 g/dl (32.0-36.5); MEAN CORPUSCULAR VOLUME 99.5 fl (80.0-96.0); MONO # 0.6 10^3/uL (0.0-0.8); MONO % 7.2 % (2.0-8.0); NEUTROPHILS # 5.4 10^3/uL (1.5-8.5); NEUTROPHILS % 67.8 % (36.0-66.0); PLATELET COUNT, AUTOMATED 209 10^3/uL (150-450); RED BLOOD COUNT 3.82 10^6/uL (4.30-6.10)
[2021-08-31 13:28] LABS: PERCENT SATURATION 33.1 % (19.7-50.0)
== END ==
LOC: M ADAMS 09:50
PROVIDERS: ATTEND Family Medicine
DX: D64.9 Anemia, unspecified (principal)

== ENCOUNTER → 2021-10-29 | Outpatient (CLI) | payer BC ==
[2021-10-29 12:57] LABS: BASO # 0.1 10^3/uL (0.0-0.2); BASO % 0.8 % (0.0-1.0); EOS # 0.4 10^3/uL (0.0-0.5); EOS % 4.6 % (0.0-3.0); HEMATOCRIT 37.3 % (42.0-52.0); HEMOGLOBIN 12.3 g/dl (13.5-17.5); LYMPH # 1.5 10^3/uL (1.5-5.0); LYMPH % 19.8 % (24.0-44.0); MEAN CORPUSCULAR HEMOGLOBIN 31.6 pg (27.0-33.0); MEAN CORPUSCULAR VOLUME 95.9 fl (80.0-96.0); MONO # 0.6 10^3/uL (0.0-0.8); MONO % 8.4 % (2.0-8.0); NEUTROPHILS % 65.2 % (36.0-66.0); PLATELET COUNT, AUTOMATED 222 10^3/uL (150-450); RED BLOOD COUNT 3.89 10^6/uL (4.30-6.10); WHITE BLOOD COUNT 7.6 10^3/uL (4.0-10.0)
== END ==
LOC: M ADAMS 10:47
PROVIDERS: ATTEND Family Medicine
DX: D64.9 Anemia, unspecified (principal)

== ENCOUNTER → 2021-12-11 | Outpatient (CLI) | payer BC ==
[2021-12-11 16:41] LABS: BASO # 0.1 10^3/uL (0.0-0.2); BASO % 0.6 % (0.0-1.0); EOS # 0.4 10^3/uL (0.0-0.5); EOS % 4.1 % (0.0-3.0); HEMOGLOBIN 12.6 g/dl (13.5-17.5); LYMPH # 1.8 10^3/uL (1.5-5.0); LYMPH % 20.8 % (24.0-44.0); MEAN CORPUSCULAR HEMOGLOBIN 32.6 pg (27.0-33.0); MEAN CORPUSCULAR HGB CONC 33.2 g/dl (32.0-36.5); MEAN CORPUSCULAR VOLUME 98.2 fl (80.0-96.0); MONO # 0.9 10^3/uL (0.0-0.8); NEUTROPHILS # 5.4 10^3/uL (1.5-8.5); NEUTROPHILS % 63.8 % (36.0-66.0); PLATELET COUNT, AUTOMATED 211 10^3/uL (150-450); RED BLOOD COUNT 3.87 10^6/uL (4.30-6.10); WHITE BLOOD COUNT 8.5 10^3/uL (4.0-10.0)
== END ==
LOC: M ADAMS 13:16
PROVIDERS: ATTEND Family Medicine
DX: D64.9 Anemia, unspecified (principal)

== ENCOUNTER → 2022-02-20 | Outpatient (CLI) | payer BC | LOC: M LABDRWAD 09:57 | PROVIDERS: ATTEND General Practice | DX: C61 Malignant neoplasm of prostate (principal) ==

== ENCOUNTER → 2022-02-20 | Outpatient (CLI) | payer BC ==
[2022-02-20 14:05] LABS: BASO # 0.1 10^3/uL (0.0-0.2); BASO % 0.7 % (0.0-1.0); EOS # 0.4 10^3/uL (0.0-0.5); EOS % 3.6 % (0.0-3.0); HEMOGLOBIN 12.7 g/dl (13.5-17.5); LYMPH % 20.3 % (24.0-44.0); MEAN CORPUSCULAR HEMOGLOBIN 33.8 pg (27.0-33.0); MEAN CORPUSCULAR HGB CONC 34.3 g/dl (32.0-36.5); MEAN CORPUSCULAR VOLUME 98.4 fl (80.0-96.0); MONO % 10.5 % (2.0-8.0); NEUTROPHILS # 6.1 10^3/uL (1.5-8.5); NEUTROPHILS % 63.3 % (36.0-66.0); PLATELET COUNT, AUTOMATED 210 10^3/uL (150-450); RED BLOOD COUNT 3.76 10^6/uL (4.30-6.10); WHITE BLOOD COUNT 9.7 10^3/uL (4.0-10.0)
[2022-02-20 14:22] LABS: INR 0.93; PROTHROMBIN TIME 12.7 SECONDS (12.5-14.5)
[2022-02-20 14:25] LABS: ALBUMIN 4.1 GM/DL (3.2-5.2); ALT/SGPT 27 U/L (12-78); BILIRUBIN,TOTAL 0.5 MG/DL (0.2-1.0); BLOOD UREA NITROGEN 15 MG/DL (7-18); CARBON DIOXIDE LEVEL 29 MEQ/L (21-32); CHLORIDE LEVEL 104 MEQ/L (98-107); CREATININE FOR GFR 0.92 MG/DL (0.70-1.30); GLOMERULAR FILTRATION RATE > 60.0 (>49); GLUCOSE, FASTING 97 MG/DL (70-100); POTASSIUM SERUM 4.3 MEQ/L (3.5-5.1); SODIUM LEVEL 139 MEQ/L (136-145); TOTAL PROTEIN 7.9 GM/DL (6.4-8.2)
[2022-02-20 14:28] LABS: ERYTHROCYTE SEDIMENTATION RATE 39 mm/hr (0-20)
[2022-02-20 14:37] LABS: APPEARANCE, URINE MANUAL CLEAR (CLEAR); COLOR, URINE MANUAL YELLOW (YELLOW)
[2022-02-20 14:40] LABS: BILIRUBIN, URINE MANUAL NEGATIVE (NEGATIVE); GLUCOSE, URINE (UA) MANUAL NEGATIVE (NEGATIVE); KETONE, URINE MANUAL NEGATIVE (NEGATIVE); LEUKOCYTE ESTERASE, URINE MAN NEGATIVE (NEGATIVE); NITRITE, URINE MANUAL NEGATIVE (NEGATIVE); PROTEIN, URINE MANUAL NEGATIVE (NEGATIVE); SPECIFIC GRAVITY,URINE MANUAL 1.025 (1.002-1.035); UROBILINOGEN, URINE MANUAL NORMAL (NORMAL)
[2022-02-20 14:41] LABS: BLOOD URINE MANUAL NEGATIVE (NEGATIVE)
== END ==
LOC: M LABDRWAD 10:00
PROVIDERS: ATTEND Nurse Practitioner Family
DX: Z01.818 Encounter for other preprocedural examination (principal); D64.9 Anemia, unspecified; I10 Essential (primary) hypertension

== ENCOUNTER → 2022-02-22 | Outpatient (CLI) | payer BC | LOC: M RAD 08:37 | PROVIDERS: ATTEND Orthopaedic Surgery | DX: M17.12 Unilateral primary osteoarthritis, left knee (principal) ==

== ENCOUNTER → 2022-02-28 | Outpatient (CLI) | payer BC | LOC: M ONCR 10:24 | PROVIDERS: ATTEND General Practice | DX: C61 Malignant neoplasm of prostate (principal); R32 Unspecified urinary incontinence; Z92.3 Personal history of irradiation; Z79.899 Other long term (current) drug therapy ==

== ENCOUNTER → 2022-08-23 | Outpatient (REF) | payer BC | LOC: M SFHCADAM 10:38 | PROVIDERS: ATTEND Physician Assistant | DX: C61 Malignant neoplasm of prostate (principal) ==

== ENCOUNTER → 2023-02-19 | Outpatient (REF) | payer BC | LOC: M LABDRWAD 15:57 | PROVIDERS: ATTEND General Practice | DX: C61 Malignant neoplasm of prostate (principal) ==

== ENCOUNTER → 2023-02-28 | Outpatient (CLI) | payer BC ==
[~2023-02-28] MED LIST changes: +SILD20TA11 PO
== END ==
LOC: M ONCR 10:13
PROVIDERS: ATTEND General Practice
DX: C61 Malignant neoplasm of prostate (principal); N52.9 Male erectile dysfunction, unspecified; Z71.2 Person consulting for explanation of examination or test findings; Z79.899 Other long term (current) drug therapy; Z92.3 Personal history of irradiation

== ENCOUNTER → 2023-05-09 | Outpatient (REF) | payer BC ==
[2023-05-09 14:13] LABS: BASO # 0.1 10^3/uL (0.0-0.2); EOS # 0.4 10^3/uL (0.0-0.5); EOS % 4.1 % (0.0-3.0); HEMATOCRIT 43.2 % (42.0-52.0); HEMOGLOBIN 14.3 g/dl (13.5-17.5); LYMPH # 1.8 10^3/uL (1.5-5.0); LYMPH % 20.5 % (24.0-44.0); MEAN CORPUSCULAR HEMOGLOBIN 34.5 pg (27.0-33.0); MEAN CORPUSCULAR HGB CONC 33.1 g/dl (32.0-36.5); MEAN CORPUSCULAR VOLUME 104.3 fl (80.0-96.0); MONO # 0.9 10^3/uL (0.0-0.8); MONO % 9.9 % (2.0-8.0); NEUTROPHILS # 5.5 10^3/uL (1.5-8.5); NEUTROPHILS % 63.6 % (36.0-66.0); PLATELET COUNT, AUTOMATED 215 10^3/uL (150-450); RED BLOOD COUNT 4.14 10^6/uL (4.30-6.10); WHITE BLOOD COUNT 8.7 10^3/uL (4.0-10.0)
[2023-05-09 14:38] LABS: ALBUMIN 4.3 G/DL (3.2-5.2); ALKALINE PHOSPHATASE 84 U/L (46-116); ALT/SGPT 31 U/L (7.0-40); AST/SGOT 17 U/L (<34); BILIRUBIN,TOTAL 0.6 MG/DL (0.3-1.2); BLOOD UREA NITROGEN 19 MG/DL (9-23); CALCIUM LEVEL 9.3 MG/DL (8.3-10.6); CARBON DIOXIDE LEVEL 30 MMOL/L (20-31); CHLORIDE LEVEL 104 MMOL/L (98-107); CHOLESTEROL LEVEL 142 MG/DL (<200); CHOLESTEROL RISK RATIO 4.35 (<5); CREATININE FOR GFR 0.88 MG/DL (0.70-1.30); GLOMERULAR FILTRATION RATE > 60.0 (>49); GLUCOSE, FASTING 131 MG/DL (74-106); HDL CHOLESTEROL 32.6 MG/DL (>40); IRON (FE) 74 UG/DL (65-175); LDL CHOLESTEROL 60.4 MG/DL (<100); NON-HDL-C 109.4 MG/DL; PERCENT SATURATION 26.3 % (19.7-50.0); POTASSIUM SERUM 4.8 MMOL/L (3.5-5.1); SODIUM LEVEL 138 MMOL/L (136-145); TOTAL IRON BINDING CAPACITY 281 UG/DL (250-425); TOTAL PROTEIN 7.5 G/DL (5.7-8.2); TRIGLYCERIDES LEVEL 245 MG/DL (<150)
== END ==
LOC: M LABDRWAD 13:11
PROVIDERS: ATTEND Registered Nurse
DX: I10 Essential (primary) hypertension (principal); D64.9 Anemia, unspecified; E78.2 Mixed hyperlipidemia

== ENCOUNTER → 2023-08-13 | Outpatient (REF) | payer BC | LOC: M SFHCADAM 07:46 | PROVIDERS: ATTEND Physician Assistant | DX: C61 Malignant neoplasm of prostate (principal) ==

== ENCOUNTER → 2024-02-24 | Outpatient (REF) | payer BC, MEDICARE | LOC: M LABDRAWC 13:25 | PROVIDERS: ATTEND General Practice | DX: C61 Malignant neoplasm of prostate (principal) ==

== ENCOUNTER → 2024-03-02 | Outpatient (CLI) | payer BC, MEDICARE | LOC: M ONCR 10:12 | PROVIDERS: ATTEND General Practice | DX: C61 Malignant neoplasm of prostate (principal); Z79.899 Other long term (current) drug therapy; Z92.3 Personal history of irradiation ==

== ENCOUNTER → 2024-05-12 | Outpatient (REF) | payer BC ==
[2024-05-12 14:10] LABS: BASO # 0.1 10^3/uL (0.0-0.2); BASO % 0.7 % (0.0-1.0); EOS # 0.3 10^3/uL (0.0-0.5); EOS % 3.7 % (0.0-3.0); HEMATOCRIT 39.1 % (42.0-52.0); HEMOGLOBIN 13.1 g/dl (13.5-17.5); LYMPH # 1.9 10^3/uL (1.5-5.0); LYMPH % 22.8 % (24.0-44.0); MEAN CORPUSCULAR HEMOGLOBIN 34.1 pg (27.0-33.0); MEAN CORPUSCULAR HGB CONC 33.5 g/dl (32.0-36.5); MEAN CORPUSCULAR VOLUME 101.8 fl (80.0-96.0); MONO # 0.9 10^3/uL (0.0-0.8); MONO % 10.3 % (2.0-8.0); NEUTROPHILS # 5.2 10^3/uL (1.5-8.5); NEUTROPHILS % 61.5 % (36.0-66.0); PLATELET COUNT, AUTOMATED 181 10^3/uL (150-450); RED BLOOD COUNT 3.84 10^6/uL (4.30-6.10); WHITE BLOOD COUNT 8.4 10^3/uL (4.0-10.0)
[2024-05-12 14:14] LABS: FERRITIN 936.7 NG/ML (10.5-307.3)
[2024-05-12 14:16] LABS: IRON (FE) 101 UG/DL (65-175); PERCENT SATURATION 38.8 % (19.7-50.0); TOTAL IRON BINDING CAPACITY 260 UG/DL (250-425)
[2024-05-12 14:17] LABS: ALBUMIN 4.1 G/DL (3.2-5.2); ALKALINE PHOSPHATASE 81 U/L (40-129); ALT/SGPT 25 U/L (7.0-40); AST/SGOT 14 U/L (<34); BILIRUBIN,TOTAL 0.6 MG/DL (0.3-1.2); BLOOD UREA NITROGEN 18 MG/DL (9-23); CALCIUM LEVEL 9.2 MG/DL (8.3-10.6); CARBON DIOXIDE LEVEL 30 MMOL/L (20-31); CHLORIDE LEVEL 105 MMOL/L (98-107); CHOLESTEROL LEVEL 124 MG/DL (<200); CHOLESTEROL RISK RATIO 4.24 (<5); CREATININE FOR GFR 0.92 MG/DL (0.70-1.30); GLOMERULAR FILTRATION RATE > 60.0 (>49); GLUCOSE, FASTING 115 MG/DL (74-106); HDL CHOLESTEROL 29.2 MG/DL (>40); LDL CHOLESTEROL 50.2 MG/DL (<100); NON-HDL-C 94.8 MG/DL; POTASSIUM SERUM 4.4 MMOL/L (3.5-5.1); SODIUM LEVEL 139 MMOL/L (136-145); TOTAL PROTEIN 7.3 G/DL (5.7-8.2); TRIGLYCERIDES LEVEL 223 MG/DL (<150)
[2024-05-12 14:26] LABS: HEMOGLOBIN A1c 5.6 % (4.0-6.0)
== END ==
LOC: M LABDRWAD 13:16
PROVIDERS: ATTEND Registered Nurse
DX: E78.2 Mixed hyperlipidemia (principal); D64.9 Anemia, unspecified

== ENCOUNTER → 2024-08-04 | Outpatient (CLI) | payer BC ==
[2024-08-04 14:35] LABS: BASO # 0.1 10^3/uL (0.0-0.2); BASO % 0.8 % (0.0-1.0); EOS # 0.4 10^3/uL (0.0-0.5); EOS % 3.6 % (0.0-3.0); HEMATOCRIT 41.1 % (42.0-52.0); HEMOGLOBIN 13.8 g/dl (13.5-17.5); LYMPH # 2.2 10^3/uL (1.5-5.0); LYMPH % 21.7 % (24.0-44.0); MEAN CORPUSCULAR HEMOGLOBIN 33.9 pg (27.0-33.0); MEAN CORPUSCULAR HGB CONC 33.6 g/dl (32.0-36.5); MONO # 0.9 10^3/uL (0.0-0.8); MONO % 8.7 % (2.0-8.0); NEUTROPHILS # 6.4 10^3/uL (1.5-8.5); NEUTROPHILS % 63.8 % (36.0-66.0); PLATELET COUNT, AUTOMATED 218 10^3/uL (150-450); RED BLOOD COUNT 4.07 10^6/uL (4.30-6.10); WHITE BLOOD COUNT 10.1 10^3/uL (4.0-10.0)
[2024-08-04 14:41] LABS: IRON (FE) 105 UG/DL (65-175); PERCENT SATURATION 38.7 % (19.7-50.0); TOTAL IRON BINDING CAPACITY 271 UG/DL (250-425)
[2024-08-04 14:42] LABS: ALBUMIN 4.2 G/DL (3.2-5.2); ALKALINE PHOSPHATASE 84 U/L (40-129); ALT/SGPT 23 U/L (7.0-40); AST/SGOT 16 U/L (<34); BILIRUBIN,TOTAL 0.7 MG/DL (0.3-1.2); BLOOD UREA NITROGEN 20 MG/DL (9-23); CALCIUM LEVEL 8.8 MG/DL (8.3-10.6); CARBON DIOXIDE LEVEL 29 MMOL/L (20-31); CHLORIDE LEVEL 102 MMOL/L (98-107); CREATININE FOR GFR 0.87 MG/DL (0.70-1.30); GLOMERULAR FILTRATION RATE > 60.0 (>42); GLUCOSE, FASTING 133 MG/DL (74-106); POTASSIUM SERUM 4.2 MMOL/L (3.5-5.1); SODIUM LEVEL 138 MMOL/L (136-145); TOTAL PROTEIN 7.5 G/DL (5.7-8.2)
[2024-08-04 14:45] LABS: FERRITIN 992.9 NG/ML (10.5-307.3)
== END ==
LOC: M ADAMS 08:05
PROVIDERS: ATTEND Registered Nurse
DX: D64.9 Anemia, unspecified (principal)

== ENCOUNTER → 2024-08-24 | Outpatient (REF) | payer BC ==
[2024-08-24 14:09] LABS: BASO # 0.1 10^3/uL (0.0-0.2); BASO % 0.7 % (0.0-1.0); EOS # 0.4 10^3/uL (0.0-0.5); EOS % 3.5 % (0.0-3.0); HEMATOCRIT 42.8 % (42.0-52.0); LYMPH # 2.5 10^3/uL (1.5-5.0); LYMPH % 24.5 % (24.0-44.0); MEAN CORPUSCULAR HEMOGLOBIN 34.3 pg (27.0-33.0); MEAN CORPUSCULAR HGB CONC 32.7 g/dl (32.0-36.5); MEAN CORPUSCULAR VOLUME 104.9 fl (80.0-96.0); MONO # 0.9 10^3/uL (0.0-0.8); MONO % 8.5 % (2.0-8.0); NEUTROPHILS # 6.1 10^3/uL (1.5-8.5); NEUTROPHILS % 61.2 % (36.0-66.0); PLATELET COUNT, AUTOMATED 233 10^3/uL (150-450); RED BLOOD COUNT 4.08 10^6/uL (4.30-6.10)
[2024-08-24 14:13] LABS: ALBUMIN 4.2 G/DL (3.2-5.2)
[2024-08-24 14:20] LABS: PERCENT SATURATION 31.4 % (19.7-50.0)
[2024-08-24 14:23] LABS: FERRITIN 893.5 NG/ML (10.5-307.3)
== END ==
LOC: M LABDRWAD 13:14
PROVIDERS: ATTEND Orthopaedic Surgery
DX: M16.9 Osteoarthritis of hip, unspecified (principal); D63.8 Anemia in other chronic diseases classified elsewhere; M25.551 Pain in right hip

== ENCOUNTER → 2024-09-01 | Outpatient (CLI) | payer BC ==
[~2024-09-01] MED LIST changes: -FLOM0.4C39 PO; +TAMS-18 PO
== END ==
LOC: M ADAMS 13:11
PROVIDERS: ATTEND Nurse Practitioner Family
DX: Z01.818 Encounter for other preprocedural examination (principal)

== ENCOUNTER → 2024-09-02 | Outpatient (REF) | payer BC ==
[2024-09-02 13:31] LABS: APPEARANCE, URINE CLEAR (CLEAR); BACTERIA, URINE AUTO NEGATIVE (NEGATIVE); BILIRUBIN, URINE AUTO NEGATIVE (NEGATIVE); BLOOD, URINE BLOOD NEGATIVE (NEGATIVE); COLOR, URINE YELLOW (YELLOW); GLUCOSE, URINE (UA) AUTO NEGATIVE (NEGATIVE); KETONE, URINE AUTO NEGATIVE (NEGATIVE); LEUKOCYTE ESTERASE, URINE AUTO NEGATIVE (NEGATIVE); MUCUS, URINE SMALL (NEGATIVE); NITRITE, URINE AUTO NEGATIVE (NEGATIVE); PROTEIN, URINE AUTO NEGATIVE (NEGATIVE); RBC, URINE AUTO 0 /HPF (0-3); SQUAMOUS EPITHELIAL CELL UR AU 0 /HPF (0-6); UROBILINOGEN, URINE AUTO 0.2 mg/dL (0.0-2.0); WBC, URINE AUTO 1 /HPF (0-3)
== END ==
LOC: M LAB REF 12:50
PROVIDERS: ATTEND Nurse Practitioner Family
DX: Z01.818 Encounter for other preprocedural examination (principal)

== ENCOUNTER → 2024-09-06 | Outpatient (REF) | payer BC ==
[2024-09-06 17:11] LABS: INR 0.91; PARTIAL THROMBOPLASTIN TIME 29.9 SECONDS (24.8-34.2); PROTHROMBIN TIME 12.6 SECONDS (12.5-14.5)
[2024-09-06 17:12] LABS: ALBUMIN 4.5 G/DL (3.2-5.2); BILIRUBIN,TOTAL 0.6 MG/DL (0.3-1.2); CALCIUM LEVEL 9.8 MG/DL (8.3-10.6); CREATININE FOR GFR 1.05 MG/DL (0.70-1.30); GLOMERULAR FILTRATION RATE 76.4 (>42); POTASSIUM SERUM 4.4 MMOL/L (3.5-5.1); TOTAL PROTEIN 7.9 G/DL (5.7-8.2)
== END ==
LOC: M LABDRWAD 16:47
PROVIDERS: ATTEND Nurse Practitioner Family
DX: Z01.818 Encounter for other preprocedural examination (principal)

== ENCOUNTER → 2024-11-16 | Outpatient (REF) | payer BC ==
[2024-11-16 15:13] LABS: ALT/SGPT 21 U/L (7.0-40); AST/SGOT 21 U/L (<34); BASO # 0.0 10^3/uL (0.0-0.2); BASO % 0.4 % (0.0-1.0); CALCIUM LEVEL 9.2 MG/DL (8.3-10.6); CARBON DIOXIDE LEVEL 27 MMOL/L (20-31); CHLORIDE LEVEL 104 MMOL/L (98-107); CHOLESTEROL LEVEL 132 MG/DL (<200); CHOLESTEROL RISK RATIO 4.16 (<5); CREATININE FOR GFR 0.85 MG/DL (0.70-1.30); EOS # 0.3 10^3/uL (0.0-0.5); EOS % 3.3 % (0.0-3.0); GLOMERULAR FILTRATION RATE > 90.0 (>42); IRON (FE) 95 UG/DL (65-175); LDL CHOLESTEROL 64.9 MG/DL (<100); LYMPH # 1.7 10^3/uL (1.5-5.0); LYMPH % 17.4 % (24.0-44.0); MONO # 0.7 10^3/uL (0.0-0.8); MONO % 7.7 % (2.0-8.0); NEUTROPHILS # 6.8 10^3/uL (1.5-8.5); NEUTROPHILS % 70.6 % (36.0-66.0); NON-HDL-C 100.3 MG/DL; PERCENT SATURATION 36.0 % (19.7-50.0); PLATELET COUNT, AUTOMATED 198 10^3/uL (150-450); POTASSIUM SERUM 4.6 MMOL/L (3.5-5.1); SODIUM LEVEL 141 MMOL/L (136-145); TRIGLYCERIDES LEVEL 177 MG/DL (<150)
[2024-11-16 15:14] LABS: VITAMIN B12 LEVEL 388 PG/ML (211-911)
[2024-11-16 15:20] LABS: ESTIMATED AVERAGE GLUCOSE 105.0 MG/DL (60-110)
== END ==
LOC: M LABDRWAD 13:22
PROVIDERS: ATTEND Registered Nurse
DX: D64.9 Anemia, unspecified (principal); E78.2 Mixed hyperlipidemia

== ENCOUNTER → 2024-12-07 | Outpatient (REF) | payer BC | LOC: M LABDRWAD 12:55 | PROVIDERS: ATTEND Orthopaedic Surgery | DX: M54.50 Low back pain, unspecified (principal); M25.551 Pain in right hip; Z47.1 Aftercare following joint replacement surgery ==

== ENCOUNTER → 2025-02-21 | Outpatient (REF) | payer BC, MEDICARE ==
[~2025-02-21] MED LIST changes: -SILD20TA11 PO; +SILD20TA64 PO
== END ==
LOC: M LABDRWAD 17:27
PROVIDERS: ATTEND General Practice
DX: C61 Malignant neoplasm of prostate (principal)

== ENCOUNTER → 2025-03-02 | Outpatient (CLI) | payer BC | LOC: M ONCR 08:49 | PROVIDERS: ATTEND General Practice | DX: Z08 Encounter for follow-up examination after completed treatment for malignant neoplasm (principal); Z85.46 Personal history of malignant neoplasm of prostate; Z92.3 Personal history of irradiation; Z79.899 Other long term (current) drug therapy ==